=== PATIENT | female | born 1965 | race Caucasian/White ===

== ENCOUNTER 2017-01-31 16:19 | Inpatient (IN) | payer BC ==
[~2017-01-31] VITALS: Ht 157.5 cm; Wt 126.3 kg
[~2017-01-31 16:19] MED LIST: ALBUTEROL0.09 MG/A2 IH; AMLODIPINE BES10 MG PO; AMOXIL500 MG PO; ANAPROX DS550 MG PO; AVPAK AZITHROM250 M1 PO; BACTRIM DS 8001 TA1 PO; BREO ELLIPTA 11 EACH IH; CEFUROXIME AXE250 MG PO; CLARITIN10 MG PO; CLONIDINE HCL0.1 M1 PO; COMBIVENT1 ARO IH; DELTASONE20 M1 PO; DUONEB 3 MG/3 ML3 M1 INH; Duoneb 3ML 3 MG/3 ML INH; EES400 MG PO; HYDR12.5C PO; HYDROCODONE BIT1 T11 PO; KEFLEX500 MG PO; LISINOPRIL40 MG PO; MEDROL DOSEPAK4 MG PO; NEBULIZER DEVI; PHENERGAN25 M1 PO; PRAVASTATIN SOD20 MG PO; PREDNICOT10 MG PO; PREDNICOT20 MG PO; PREDNISONE10 MG PO; PREDNISONE20 M1 PO; PREDNISONE20 MG PO; PROAIR HFA0.09 MG/AC IH; PROVENTIL0.09 MG/AC IH; ROBITUSSIN AC 110 ML PO; ROBITUSSIN DM 105 ML PO; SINGULAIR10 M1 PO; SINGULAIR10 MG PO; SYMBICORT1 AE1 INH; TESSALON PERLE100 M1 PO; TUSSIN DM 10 M120 M1 PO; UNKOWN; VIBRAMYCIN100 MG PO; ZANTAC150 MG PO; ZITHROMAX Z PA250 MG PO; ZITHROMAX250 MG PO
[2017-01-31 18:57] VITALS: BP 154/63
[2017-01-31 19:12] LABS: BASO # 0.1 10*3/uL (0.0-0.1); BASO % 0.5 % (0.0-1.0); EOS # 0.2 10*3/uL (0.0-0.4); EOS % 2.1 % (1.0-4.0); HEMATOCRIT 38.9 % (37.0-47.0); HEMOGLOBIN 12.1 g/dl (12.0-16.0); IG # 0.1 10*3/uL (0.0-0.1); LYMPH # 1.1 10*3/uL (1.3-4.4); LYMPH % 12.1 % (27.0-41.0); MEAN CELL VOLUME 83.3 fl (81.0-99.0); MEAN CORPUSCULAR HGB 25.9 pg (27.0-31.0); MEAN CORPUSCULAR HGB CONC 31.1 g/dl (33.0-37.0); MEAN PLATELET VOLUME 11.6 fl (9.6-12.3); MONO # 0.2 10*3/uL (0.1-1.0); MONO % 2.6 % (3.0-9.0); NEUT # 7.7 10*3/uL (2.3-7.9); NEUT % 82.1 % (47.0-73.0); PLATELET COUNT AUTOMATED 243 10*3/uL (130-400); RED BLOOD COUNT 4.67 10*6/uL (4.10-5.10); RED CELL DISTRI WIDTH 15.4 % (0-14.5); WHITE BLOOD COUNT 9.4 10*3/uL (4.8-10.8)
[2017-01-31 19:27] LABS: ALBUMIN 3.5 gm/dl (3.1-4.5); ALKALINE PHOSPHATASE 100 U/L (45-117); BILIRUBIN, TOTAL 0.5 mg/dl (0.2-1.0); BUN 11 mg/dl (7-24); CARBON DIOXIDE 26 mmol/L (21-32); CHLORIDE 105 mmol/L (98-107); EST GLOM FILT AFRICAN AMERICAN > 60 ml/min; GLUCOSE 151 mg/dL (65-99); POTASSIUM 3.9 mmol/L (3.5-5.1); SGOT/AST 92 IU/L (3-35); SGPT/ALT 59 U/L (12-78); SODIUM 143 mmol/L (136-145); TOTAL PROTEIN 8.1 gm/dL (6.4-8.2)
[2017-01-31 20:15] VITALS: BP 158/100
[2017-01-31] MEDS ORDERED: BREO ELLIPTA 21 EACH IH (20:42)
[2017-01-31 21:08] VITALS: BP 158/100
[2017-02-01] VITALS: BP 160/102
[2017-02-01 00:43] LABS: CKMB < 0.5 ng/ml (0.5-3.6); CPK 76 U/L (26-192); TROPONIN I < 0.015 ng/ml (<0.045)
[2017-02-01 03:40] VITALS: BP 142/82
[2017-02-01 06:26] LABS: BASO % 0.2 % (0.0-1.0); HEMATOCRIT 37.3 % (37.0-47.0); HEMOGLOBIN 11.5 g/dl (12.0-16.0); IG # 0.1 10*3/uL (0.0-0.1); LYMPH # 1.1 10*3/uL (1.3-4.4); LYMPH % 10.7 % (27.0-41.0); MEAN CELL VOLUME 82.7 fl (81.0-99.0); MEAN CORPUSCULAR HGB 25.5 pg (27.0-31.0); MEAN CORPUSCULAR HGB CONC 30.8 g/dl (33.0-37.0); MEAN PLATELET VOLUME 12.1 fl (9.6-12.3); MONO # 0.1 10*3/uL (0.1-1.0); MONO % 1.1 % (3.0-9.0); NEUT # 9.1 10*3/uL (2.3-7.9); NEUT % 86.9 % (47.0-73.0); PLATELET COUNT AUTOMATED 246 10*3/uL (130-400); RED BLOOD COUNT 4.51 10*6/uL (4.10-5.10); RED CELL DISTRI WIDTH 15.3 % (0-14.5); WHITE BLOOD COUNT 10.4 10*3/uL (4.8-10.8)
[2017-02-01 06:39] LABS: CPK 62 U/L (26-192)
[2017-02-01 06:40] LABS: CKMB < 0.5 ng/ml (0.5-3.6); TROPONIN I < 0.015 ng/ml (<0.045)
[2017-02-01 07:02] LABS: HEMOGLOBIN A1c 6.8 % (4.8-5.6)
[2017-02-01 07:03] LABS: BUN 15 mg/dl (7-24); CARBON DIOXIDE 26 mmol/L (21-32); CHLORIDE 103 mmol/L (98-107); CHOLESTEROL 259 mg/dL (<200); EST GLOM FILT AFRICAN AMERICAN > 60 ml/min; GLUCOSE 195 mg/dL (65-99); HDL CHOLESTEROL 40 mg/dl (40-60); LDL CHOLESTEROL 195 mg/dL (9-159); PHOSPHOROUS 3.1 mg/dL (2.5-4.9); POTASSIUM 3.6 mmol/L (3.5-5.1); SODIUM 139 mmol/L (136-145); TRIGLYCERIDES 119 mg/dl (<150); VLDL CHOLESTEROL 24 mg/dL (6-40)
[2017-02-01 07:11] LABS: FREE T4 1.11 ng/dl (0.76-1.46)
[2017-02-01 08:13] VITALS: BP 150/82
[2017-02-01 12:18] VITALS: BP 143/88
[2017-02-01 13:02] LABS: CKMB < 0.5 ng/ml (0.5-3.6); CPK 81 U/L (26-192); TROPONIN I < 0.015 ng/ml (<0.045)
[2017-02-01 16:00] VITALS: BP 143/78
[2017-02-01 20:00] VITALS: BP 153/71
[2017-02-02] VITALS: BP 119/63
[2017-02-02 06:56] LABS: HEMATOCRIT 35.3 % (37.0-47.0); HEMOGLOBIN 10.9 g/dl (12.0-16.0); MEAN CELL VOLUME 84.2 fl (81.0-99.0); MEAN CORPUSCULAR HGB CONC 30.9 g/dl (33.0-37.0); MEAN PLATELET VOLUME 12.3 fl (9.6-12.3); PLATELET COUNT AUTOMATED 292 10*3/uL (130-400); RED BLOOD COUNT 4.19 10*6/uL (4.10-5.10); RED CELL DISTRI WIDTH 15.6 % (0-14.5); WHITE BLOOD COUNT 18.4 10*3/uL (4.8-10.8)
[2017-02-02 07:16] LABS: LYMPHOCYTE # 2.2 10*3/uL (1.3-4.4); MONOCYTE # 0.4 10*3/uL (0.1-1.0); NEUTROPHIL # 15.8 10*3/uL (2.3-7.9); NEUTROPHILS 86 % (47-73); TOTAL CELLS COUNTED 100 #CELLS
[2017-02-02 07:17] LABS: PLATELET SUFFICIENCY NORMAL (NORMAL)
[2017-02-02 07:20] LABS: BUN 21 mg/dl (7-24); CARBON DIOXIDE 26 mmol/L (21-32); CHLORIDE 105 mmol/L (98-107); EST GLOM FILT AFRICAN AMERICAN > 60 ml/min; GLUCOSE 205 mg/dL (65-99); POTASSIUM 4.1 mmol/L (3.5-5.1); SODIUM 142 mmol/L (136-145)
[2017-02-02 08:00] VITALS: BP 137/85
[2017-02-02 12:00] VITALS: BP 138/70
[2017-02-02 16:00] VITALS: BP 127/69
[2017-02-02 20:00] VITALS: BP 133/67
[2017-02-03] VITALS: BP 156/65
[2017-02-03 06:05] LABS: HEMATOCRIT 37.4 % (37.0-47.0); HEMOGLOBIN 11.3 g/dl (12.0-16.0); MEAN CELL VOLUME 84.8 fl (81.0-99.0); MEAN CORPUSCULAR HGB 25.6 pg (27.0-31.0); MEAN CORPUSCULAR HGB CONC 30.2 g/dl (33.0-37.0); MEAN PLATELET VOLUME 12.9 fl (9.6-12.3); PLATELET COUNT AUTOMATED 258 10*3/uL (130-400); RED BLOOD COUNT 4.41 10*6/uL (4.10-5.10); RED CELL DISTRI WIDTH 15.8 % (0-14.5); WHITE BLOOD COUNT 15.3 10*3/uL (4.8-10.8)
[2017-02-03 06:28] LABS: BUN 27 mg/dl (7-24); CARBON DIOXIDE 27 mmol/L (21-32); CHLORIDE 104 mmol/L (98-107); EST GLOM FILT AFRICAN AMERICAN > 60 ml/min; GLUCOSE 258 mg/dL (65-99); POTASSIUM 4.1 mmol/L (3.5-5.1); SODIUM 140 mmol/L (136-145)
[2017-02-03 06:40] LABS: LYMPHOCYTE # 1.4 10*3/uL (1.3-4.4); METAMYELOCYTES 1 % (0-0); MONOCYTE # 0.5 10*3/uL (0.1-1.0); MYELOCYTES 1 % (0-0); NEUTROPHIL # 13.2 10*3/uL (2.3-7.9); NEUTROPHILS 86 % (47-73); TOTAL CELLS COUNTED 100 #CELLS
[2017-02-03 06:41] LABS: PLATELET SUFFICIENCY NORMAL (NORMAL)
[2017-02-03 08:00] VITALS: BP 150/83
[2017-02-03 12:00] VITALS: BP 114/56
[2017-02-03 16:00] VITALS: BP 129/66
[2017-02-03 20:00] VITALS: BP 128/74
[2017-02-04] VITALS: BP 145/78
[2017-02-04 06:28] LABS: BASO % 0.1 % (0.0-1.0); HEMATOCRIT 36.9 % (37.0-47.0); HEMOGLOBIN 11.5 g/dl (12.0-16.0); IG # 0.2 10*3/uL (0.0-0.1); LYMPH # 3.2 10*3/uL (1.3-4.4); LYMPH % 21.1 % (27.0-41.0); MEAN CELL VOLUME 83.5 fl (81.0-99.0); MEAN CORPUSCULAR HGB CONC 31.2 g/dl (33.0-37.0); MEAN PLATELET VOLUME 12.1 fl (9.6-12.3); MONO % 6.7 % (3.0-9.0); NEUT # 10.6 10*3/uL (2.3-7.9); NEUT % 70.6 % (47.0-73.0); PLATELET COUNT AUTOMATED 262 10*3/uL (130-400); RED BLOOD COUNT 4.42 10*6/uL (4.10-5.10); RED CELL DISTRI WIDTH 15.8 % (0-14.5)
[2017-02-04 07:05] LABS: BUN 25 mg/dl (7-24); CARBON DIOXIDE 29 mmol/L (21-32); CHLORIDE 103 mmol/L (98-107); EST GLOM FILT AFRICAN AMERICAN > 60 ml/min; GLUCOSE 158 mg/dL (65-99); POTASSIUM 3.9 mmol/L (3.5-5.1); SODIUM 140 mmol/L (136-145)
[2017-02-04 08:00] VITALS: BP 120/68
[2017-02-04 12:00] VITALS: BP 160/90
[2017-02-04] MEDS ORDERED: GLUCOPHAGE500 MG PO (12:58)
[2017-02-04] MEDS ORDERED: PREDNISONE50 MG PO (12:58)
[2017-02-04] MEDS ORDERED: BREO ELLIPTA 21 EACH IH (12:58)
== END 2017-02-04 13:32 | disposition home or self-care (01) | DRG 202 ==
LOC: ED 16:19 → EDHOLD 18:25 → 5E 20:07
PROVIDERS: Hospitalist; Physician Assistant; Student in an Organized Health Care Education/Training Program
DX: J45.901 Unspecified asthma with (acute) exacerbation (principal); Z68.42 Body mass index [BMI] 45.0-49.9, adult; E11.65 Type 2 diabetes mellitus with hyperglycemia; I10 Essential (primary) hypertension; H66.91 Otitis media, unspecified, right ear; E66.01 Morbid (severe) obesity due to excess calories; Z82.5 Family history of asthma and other chronic lower respiratory diseases; Z79.899 Other long term (current) drug therapy

== ENCOUNTER → 2017-02-10 | Outpatient (CLI) | payer BC ==
[~2017-02-10] MED LIST changes: +BREO ELLIPTA 21 EACH IH; +GLUCOPHAGE500 MG PO; +PREDNISONE50 MG PO
== END | disposition home or self-care (01) ==
LOC: RESCLI 01:58
DX: E11.9 Type 2 diabetes mellitus without complications (principal); I10 Essential (primary) hypertension; J45.909 Unspecified asthma, uncomplicated; E66.9 Obesity, unspecified; E78.5 Hyperlipidemia, unspecified

== ENCOUNTER 2017-05-01 17:00 | Emergency (ER) | payer BC ==
[~2017-05-01] VITALS: Ht 157.4 cm; Wt 113.4 kg
[2017-05-01] MEDS ORDERED: CLINDAMYCIN HC300 MG PO (17:35)
== END 2017-05-01 17:36 | disposition home or self-care (01) ==
LOC: ED 17:00
DX: L03.311 Cellulitis of abdominal wall (principal); Z79.899 Other long term (current) drug therapy

== ENCOUNTER → 2017-05-13 | Outpatient (CLI) | payer BC ==
[~2017-05-13] MED LIST changes: +CLINDAMYCIN HC300 MG PO
== END | disposition home or self-care (01) ==
LOC: RESCLI 02:17
DX: I10 Essential (primary) hypertension (principal); E66.9 Obesity, unspecified; J45.909 Unspecified asthma, uncomplicated; E78.5 Hyperlipidemia, unspecified; E11.9 Type 2 diabetes mellitus without complications; E78.00 Pure hypercholesterolemia, unspecified; K65.1 Peritoneal abscess; Z91.09 Other allergy status, other than to drugs and biological substances

== ENCOUNTER → 2017-06-18 | Outpatient (CLI) | payer BC ==
[2017-06-18 10:58] LABS: ALBUMIN 3.3 gm/dl (3.1-4.5); ALKALINE PHOSPHATASE 94 U/L (45-117); BUN 10 mg/dl (7-24); CHLORIDE 102 mmol/L (98-107); CREATININE 0.64 mg/dL (0.55-1.02); POTASSIUM 3.8 mmol/L (3.5-5.1); SGOT/AST 95 IU/L (3-35); SGPT/ALT 53 U/L (12-78); SODIUM 139 mmol/L (136-145); TOTAL PROTEIN 7.8 gm/dL (6.4-8.2)
== END | disposition home or self-care (01) ==
LOC: LAB 09:52
PROVIDERS: Internal Medicine
DX: E11.9 Type 2 diabetes mellitus without complications (principal)

== ENCOUNTER 2017-09-04 07:23 | Emergency (ER) | payer BC ==
[~2017-09-04] VITALS: Wt 145.1 kg
--- NOTE | ~2017-09-04 | PROC NOTE ---
[place], [place] PROCEDURE NOTE NAME: EULA TURK UNIT #: [id number] ROOM: DOCTOR: RESHMA NARAYANAN MD BIRTHDATE: [birth year] DOS: 09/04/2017 Our anesthesia department was contacted by the Emergency Department regarding assistance with a spinal tap for a patient in the Emergency Department. DESCRIPTION OF PROCEDURE: The patient was admitted earlier with a significant change in medical status including confusion and combativeness. Emergency Department physician was requesting assistance with the spinal tap given the patient's size and issues of lack of cooperation. Procedure was performed with anesthesia, also providing sedation. Sedation for the procedure was performed by JULIAN under the guidance of myself, Dr. Narayanan. Spinal tap was initially attempted by Ambrosio Paulino CRNA, but given the patient's body habitus, he was unable to gain access for collection of spinal fluid. The remainder of the procedure was performed by Dr. Narayanan. Spinal tap was performed using sterile technique. Standard spinal tap kit was used and provided by the Emergency Department. Back was cleaned with Betadine x 3. Needle was advanced at the level of L3-L4. After several attempts, access was gained and a spinal fluid collected into 4 vials. Access was not ideal and blood flow was slow and collection did take a significant amount of time. Procedure was performed with minimal difficulty and there did not appear to be any complications. Samples were turned over to the Emergency Department physician for forwarding to the lab for testing. The patient tolerated the procedure well. Report given to Emergency Department physician and nurses, Anesthesia Department then signed off. RESHMA NARAYANAN MD CM:PROCNOTE:PROCEDURE NOTE [id number] RESHMA NARAYANAN MD
[2017-09-04 08:13] LABS: BASO % 0.2 % (0.0-1.0); EOS # 0.1 10*3/uL (0.0-0.4); EOS % 0.5 % (1.0-4.0); HEMATOCRIT 41.6 % (37.0-47.0); HEMOGLOBIN 13.2 g/dl (12.0-16.0); LYMPH # 1.3 10*3/uL (1.3-4.4); MEAN CELL VOLUME 87.2 fl (81.0-99.0); MEAN CORPUSCULAR HGB 27.7 pg (27.0-31.0); MEAN CORPUSCULAR HGB CONC 31.7 g/dl (33.0-37.0); MEAN PLATELET VOLUME 12.1 fl (9.6-12.3); MONO # 0.3 10*3/uL (0.1-1.0); MONO % 1.8 % (3.0-9.0); NEUT # 13.9 10*3/uL (2.3-7.9); NEUT % 89.1 % (47.0-73.0); PLATELET COUNT AUTOMATED 180 10*3/uL (130-400); RED BLOOD COUNT 4.77 10*6/uL (4.10-5.10); RED CELL DISTRI WIDTH 13.7 % (0-14.5); WHITE BLOOD COUNT 15.6 10*3/uL (4.8-10.8)
[2017-09-04 08:32] LABS: ALBUMIN 3.5 gm/dl (3.1-4.5); ALKALINE PHOSPHATASE 128 U/L (45-117); BUN 15 mg/dl (7-24); CHLORIDE 104 mmol/L (98-107); CREATININE 0.93 mg/dL (0.55-1.02); POTASSIUM 3.6 mmol/L (3.5-5.1); SGOT/AST 95 IU/L (3-35); SGPT/ALT 75 U/L (12-78); SODIUM 138 mmol/L (136-145); TOTAL PROTEIN 8.2 gm/dL (6.4-8.2)
[2017-09-04 08:53] LABS: URINE AMPHETAMINES < 1000 (1000ng/ml); URINE BARBITURATES < 200 (200ng/ml); URINE BENZODIAZEPINES < 200 (200ng/ml); URINE CANNABINOIDS (THC) < 50 (50ng/ml); URINE COCAINE < 300 (300ng/ml); URINE METHADONE < 300 (300ng/ml); URINE OPIATES < 300 (300ng/ml)
[2017-09-04 08:55] LABS: URINE PHENCYCLIDINE < 25 (25ng/ml)
[2017-09-04 09:11] LABS: BILIRUBIN NEGATIVE (NEGATIVE); BLOOD NEGATIVE (NEGATIVE); CLARITY CLEAR (CLEAR); COLOR YELLOW (YELLOW); GLUCOSE NEGATIVE (NEGATIVE); KETONE 1+ (NEGATIVE); LEUKO ESTERASE NEGATIVE (NEGATIVE); NITRITE NEGATIVE (NEGATIVE); PH 5.5 (5.0-9.0); UROBILINOGEN 0.2 E.U./dl (0.2-1.0)
[2017-09-04 09:37] LABS: BACTERIA TRACE
[2017-09-04 11:17] LABS: CSF RBC 4000 /uL
[2017-09-04 11:23] LABS: CSF GLUCOSE 72 mg/dL (40-70)
[2017-09-04 11:37] LABS: CSF TOTAL PROTEIN 574.7 mg/dL (15-45)
[2017-09-04 12:18] LABS: CSF MONOCYTES 2 % (15-45)
[2017-09-04 12:21] LABS: CLARITY HAZY; COLOR BLOODY
[2017-09-04 12:59] LABS: CSF WBC 13120 /uL
[2017-09-07 00:05] LABS: HSV-2 DNA Negative (Negative)
[2017-09-09 15:07] LABS: CSF CRYPTOCOCCUS AG Negative (Negative)
== END 2017-09-04 11:26 | disposition short-term general hospital (02) ==
LOC: ED 07:23
PROVIDERS: Emergency Medicine
DX: A41.9 Sepsis, unspecified organism (principal); G93.41 Metabolic encephalopathy; R41.82 Altered mental status, unspecified; I10 Essential (primary) hypertension; J45.909 Unspecified asthma, uncomplicated; E11.65 Type 2 diabetes mellitus with hyperglycemia; Z68.42 Body mass index [BMI] 45.0-49.9, adult; Z90.89 Acquired absence of other organs; Z79.899 Other long term (current) drug therapy

== ENCOUNTER → 2017-09-30 | Outpatient (CLI) | payer BC | END | disposition home or self-care (01) | LOC: RESCLI 01:04 | DX: I10 Essential (primary) hypertension (principal); E66.9 Obesity, unspecified; J45.909 Unspecified asthma, uncomplicated; E78.5 Hyperlipidemia, unspecified; E11.9 Type 2 diabetes mellitus without complications; R53.1 Weakness; E78.00 Pure hypercholesterolemia, unspecified; Z91.048 Other nonmedicinal substance allergy status ==

== ENCOUNTER → 2017-10-21 | Outpatient (CLI) | payer BC ==
[2017-10-21 09:40] LABS: BASO # 0.1 10*3/uL (0.0-0.1); BASO % 0.7 % (0.0-1.0); EOS # 0.3 10*3/uL (0.0-0.4); EOS % 3.5 % (1.0-4.0); HEMATOCRIT 38.2 % (37.0-47.0); HEMOGLOBIN 11.6 g/dl (12.0-16.0); LYMPH # 2.3 10*3/uL (1.3-4.4); LYMPH % 25.9 % (27.0-41.0); MEAN CELL VOLUME 86.4 fl (81.0-99.0); MEAN CORPUSCULAR HGB 26.2 pg (27.0-31.0); MEAN CORPUSCULAR HGB CONC 30.4 g/dl (33.0-37.0); MEAN PLATELET VOLUME 12.5 fl (9.6-12.3); MONO # 0.6 10*3/uL (0.1-1.0); MONO % 6.9 % (3.0-9.0); NEUT # 5.6 10*3/uL (2.3-7.9); NEUT % 62.7 % (47.0-73.0); PLATELET COUNT AUTOMATED 240 10*3/uL (130-400); RED BLOOD COUNT 4.42 10*6/uL (4.10-5.10); RED CELL DISTRI WIDTH 14.3 % (0-14.5)
[2017-10-21 10:05] LABS: ALBUMIN 3.4 gm/dl (3.1-4.5); ALKALINE PHOSPHATASE 73 U/L (45-117); BUN 11 mg/dl (7-24); CHLORIDE 106 mmol/L (98-107); CHOLESTEROL 183 mg/dL (<200); CREATININE 0.63 mg/dL (0.55-1.02); HDL CHOLESTEROL 36 mg/dl (40-60); LDL CHOLESTEROL 107 mg/dL (9-159); POTASSIUM 3.5 mmol/L (3.5-5.1); SGOT/AST 52 IU/L (3-35); SGPT/ALT 41 U/L (12-78); SODIUM 140 mmol/L (136-145); TOTAL PROTEIN 7.5 gm/dL (6.4-8.2); TRIGLYCERIDES 199 mg/dl (<150); VLDL CHOLESTEROL 40 mg/dL (6-40)
== END | disposition home or self-care (01) ==
LOC: RESCLI 03:33 → LAB 03:33 → RESCLI 13:09
PROVIDERS: Internal Medicine
DX: E11.9 Type 2 diabetes mellitus without complications (principal)

== ENCOUNTER → 2017-11-04 | Outpatient (CLI) | payer BC | END | disposition home or self-care (01) | LOC: RESCLI 01:32 | DX: J06.9 Acute upper respiratory infection, unspecified (principal); I10 Essential (primary) hypertension; J45.909 Unspecified asthma, uncomplicated; E78.5 Hyperlipidemia, unspecified; E11.9 Type 2 diabetes mellitus without complications; E66.01 Morbid (severe) obesity due to excess calories; H53.9 Unspecified visual disturbance; G00.9 Bacterial meningitis, unspecified; R56.9 Unspecified convulsions; Z91.048 Other nonmedicinal substance allergy status ==

== ENCOUNTER 2017-11-12 14:23 | Inpatient (IN) | payer BC, MEDICAID ==
[~2017-11-12] VITALS: Ht 157.4 cm; Wt 117.3 kg
--- NOTE | ~2017-11-12 | CON ---
[place], [place] REPORT OF CONSULTATION NAME: [id number] UNIT #: [id number] ROOM: 415 DOCTOR: PAMELA ZAYAS DO BIRTHDATE: [birth year] DOS: 11/13/2017 CHIEF COMPLAINT: Cough and congestion. HISTORY OF PRESENT ILLNESS: This is a 52-year-old female who came to the ER from home with a complaint of shortness of breath that has been ongoing for about a week. The patient was on a Z-KERI as outpatient with no improvement of her symptoms. The patient reports that she is having fever, cough without sputum production, wheezing and shortness of breath. Fever upon arrival to the ER was 102. The patient was recently discharged in August for metabolic encephalopathy and meningitis. PAST MEDICAL HISTORY: Asthma, cellulitis, diabetes type 2, transaminitis, hypertension, morbid obesity. PAST SURGICAL HISTORY: Tonsillectomy. SOCIAL HISTORY: The patient denies alcohol use. No illicit drug use and tobacco abuse. FAMILY HISTORY: Father of asthma attack in his 70s. Mother of car crash. ALLERGIES: No known drug allergies. HOME MEDICATIONS: Include DuoNeb, nebulizers, Breo, Keppra, lisinopril, metformin, Singulair, pravastatin. REVIEW OF SYSTEMS: GENERAL: The patient reports fevers, chills. Denies weight loss, weight gain. HEENT: Denies change in vision, hearing loss, nasal discharge, sore throat, dysphagia. CARDIOVASCULAR: Denies chest pain, palpitations, lower extremity edema. RESPIRATORY: Reports shortness of breath, cough, wheezing, dyspnea on exertion and sputum production. The patient denies hemoptysis. ABDOMEN: Denies abdominal pain, nausea, vomiting, diarrhea, constipation. NEUROLOGIC: The patient denies lightheadedness, dizziness, headaches, confusion. SKIN: The patient denies rashes or lesions. PHYSICAL EXAMINATION: VITAL SIGNS: Temperature 98.2, pulse is 86, respirations 20, blood pressure 114/64, pulse ox is 97% on room air. GENERAL APPEARANCE: The patient is awake, alert and oriented x 3, in mild distress. HEENT: Eyes are clear. Nares are patent. Mucous membranes are moist. NECK: Supple, nontender. CARDIOVASCULAR: Regular rate and rhythm. S1, S2 noted. PULMONARY: Expiratory wheezing in all lung sarmiento. No rales. No rhonchi. ABDOMEN: Soft, nontender with positive bowel sounds. [place], [place] REPORT OF CONSULTATION NAME: EULA TURK UNIT #: [id number] ROOM: [facility] DOCTOR: PAMELA ZAYAS DO BIRTHDATE: [birth year] EXTREMITIES: Periphery is clear of edema and erythema. NEUROLOGIC: Negative for focal deficits. LABORATORY DATA: Blood cultures and flu swabs are negative. Chest x-ray yesterday showed normal PA and lateral chest. IMPRESSION: 1. Pneumonitis. 2. Suspected flu. 3. Fever. 4. Diabetes. 5. Obesity. 6. History of meningitis. TREATMENT PLAN: The patient was initially started on Levaquin, continue with Levaquin IV, Solu-Medrol 80 b.i.d., Robitussin, Mucinex. We will add Tamiflu to the treatment plan, continue with DuoNeb and Dulera. The patient reports that she feels mildly improved today compared to yesterday. We will continue to follow. PAMELA ZAYAS, JAMISON ANDINO MD CM:CONSTR:REPORT OF CONSULTATION 1150 11/13/17 1436 interface
--- NOTE | ~2017-11-12 | PR ---
[place], [place] PROGRESS NOTE NAME: EULA TURK UNIT #: [id number] ROOM: 421 DOCTOR: SINA TERRY MD,JAMISON BIRTHDATE: [birth year] DOS: 11/14/2017 PULMONARY PROGRESS ADDENDUM NOTE SUBJECTIVE: She has been comfortably resting at this time on the bed. Denies symptoms of chest pain, shortness of breath, cough, and wheezing has been noted decreased. Denies symptoms of hemoptysis or any chest pain. The patient was seen independently today [id number] encounter. History was confirmed. Physical examination performed. Labs were reviewed. Assessment and management for this note were personally completed. Note done by the medical laboratory technicians was approved as well. PHYSICAL EXAMINATION: VITAL SIGNS: Reviewed were noted essentially normal vital signs. The pulse oxygen saturation for the patient noted as normal on room air at 93%. LUNGS: Noted with mild expiratory wheezing with significant reduction and improvement in air entry from yesterday's examination. ABDOMEN: Noted chronic obesity. EXTREMITIES: Without any edema, clubbing or cyanosis. LABORATORY DATA: Reviewed for the patient. Blood culture was noted as no bacterial growth. Final culture results were noted from the 24 of this month. IMPRESSION: Resolving acute exacerbation of bronchial asthma, resolution of fever is also noted progressively. PLAN OF MANAGEMENT: The patient will be continued on bronchodilators, dose of steroids will be decreased, Solu-Medrol 40 mg b.i.d. Potential discharge home on oral medications tomorrow would be considered based on the further improvement in the respiratory symptoms and status. JAMISON ANDINO MD CM:PNTRANS [phone] JAMISON TERRY MD 11/15/17 0126 interface
--- NOTE | ~2017-11-12 | PR ---
[place], [place] PROGRESS NOTE NAME: EULA TURK UNIT #: [id number] ROOM: 421 DOCTOR: PAMELA ZAYAS DO BIRTHDATE: [birth year] DOS: 11/14/2017 SUBJECTIVE: The patient is seen and examined at bedside. The patient was sleeping, in no acute distress. The patient awoke easily, is awake and alert and oriented. The patient reports that her breathing has eased up and that she is not having any difficulty catching her breath. The patient reports that she still has a cough and mild shortness of breath; however, has dramatically improved from yesterday. The patient has no new complaints at this time. OBJECTIVE: VITAL SIGNS: Temperature 98.1, pulse was 98, respirations 20, blood pressure 144/79, pulse ox 98% on room air. GENERAL APPEARANCE: The patient is awake and alert and oriented times 3, no acute distress. HEENT: Eyes are clear. No injection. Nares are patent. Mucous membranes are moist. NECK: Supple, nontender. CARDIOVASCULAR: Regular rate and rhythm, no murmurs, gallops or rubs. PULMONARY: Wheezes with diminished breath sounds. No rhonchi or rales. ABDOMEN: Soft, nontender with positive bowel sounds. EXTREMITIES: No edema, erythema, clubbing, or cyanosis. NEUROLOGIC: Negative for focal deficits. LABORATORY DATA: Blood cultures remain negative. Flu swab was negative. IMPRESSION: 1. Pneumonitis. 2. Acute upper respiratory infection with bronchitis. 3. Chronic obesity. 4. Recent history of meningitis and type 2 diabetes, uncontrolled. PLAN: At this time, I will continue with the steroids; however, the dose will be reduced from 80 to 40 b.i.d. Continue with antibiotics of Levaquin and antivirals with the Tamiflu. Bronchodilators as needed. The patient continues to get better clinically, will likely be ready for discharge tomorrow. PAMELA ZAYAS DO [place], [place] PROGRESS NOTE NAME: EULA TURK UNIT #: [id number] ROOM: 421 DOCTOR: PAMELA ZAYAS DO BIRTHDATE: [birth year] JAMISON ANDINO MD CM:FAUZIA [id number] 20 PAMELA ZAYAS DO 11/14/171220 interface
--- NOTE | ~2017-11-12 | PR ---
[place], [place] PROGRESS NOTE [id number] UNIT #: [id number] ROOM: 421 DOCTOR: SINA TERRY MD,JAMISON BIRTHDATE: [birth year] DOS: 11/15/2017 SUBJECTIVE: She was noted comfortable at this time without any acute distress. The patient was reported symptoms of having gradual reduction in symptoms of shortness of breath, coughing, or wheezing at this time. Denies symptoms of abdominal pain. OBJECTIVE: VITAL SIGNS: For the patient, which was recorded. The patient showed the temperature noted normal, respiratory rate 18, heart rate of 71, the blood pressure 146/76. The pulse oxygen saturation recorded as 99% on room air. HEENT: Chronic obesity. NECK: Supple. Head was atraumatic. CARDIOVASCULAR: S1, S2 audible. LUNGS: Minimal wheezing with improved air entry of the lungs were noted bilaterally. ABDOMEN: Soft, obese, nontender. IMPRESSION: 1. The patient who has been noted with progressive resolution of acute exacerbation of bronchial asthma. The patient with acute bronchitis. 2. History of chronic obesity. PLAN OF TREATMENT: The patient could be considered for home discharge at this time. No other changes in treatment at this time will be necessary. Supportive care, other therapy, plan of management. Usual care. Home medication the patient for bronchial asthma long-term basis to be continued were advised. JAMISON ANDINO MD CM:PNTRANS [phone] JAMISON TERRY MD 11/16/17 0102 interface
--- NOTE | ~2017-11-12 | CON ---
[place], [place] REPORT OF CONSULTATION NAME: [facility]K [facility] [id number] UNIT #: [id number] ROOM: 415 DOCTOR: SINA TERRY MDJAMISON BIRTHDATE: [birth year] DOS: 11/13/2017 REASON FOR CONSULTATION: Assess the patient's current ongoing exacerbation of bronchial asthma and other abnormal respiratory symptom. HISTORY OF PRESENT ILLNESS: The patient was independently seen with [id number] encounter today. History was personally confirmed with the patient. Physical examination performed. All the labs were reviewed. The assessment and management today's note were personally completed. The note done by the medical coder was approved as well. HISTORY OF PRESENT ILLNESS: A 60-year-old white female known with history of bronchial asthma since childhood. The patient presented to the hospital. The patient has reported increased respiratory symptoms progressively. The patient stated the symptoms have been present since 08/2008 for this patient as she developed acute meningitis and metabolic encephalopathy, treated at [facility]. The patient states she has been noted complete resolution of the previous symptoms. The current symptom has been noted with gradual worsening with the patient's inability exact of sputum, treated with a Z-KERI by the primary care physician without any improvement in symptom. She has been noted progressive chest congestion with nonproductive cough ____ time with increased shortness of breath with exertion, [id number] activities as well as wheezing. She was complaining of tightness in the chest without any chest pain. She was also noted with fever as the patient arrived in the Emergency Room. REVIEW OF SYSTEMS: Done by the medical coder, was approved. PAST MEDICAL HISTORY: 1. Known with history of longstanding bronchial asthma, severity of the patient's was unknown. 2. Past history of cellulitis. 3. Type 2 diabetes mellitus. 4. Essential hypertension. 5. Morbid obesity. PAST SURGICAL HISTORY: Noted as tonsillectomy. SOCIAL HISTORY: The patient stated she is , has one child. Nonsmoker lifetime. Denies history of alcohol use, illicit drug use or occupation related pulmonary exposure. FAMILY HISTORY: The patient's father of complication related to bronchial asthma. Mother in a motor vehicle accident. HOME MEDICATIONS: Reported use of p.o. Lipitor, Keppra, lisinopril, DuoNeb, pravastatin, Singulair and metformin. DRUG ALLERGIES: The patient was noted as no known drug allergies. PHYSICAL EXAMINATION: [place], [place] REPORT OF CONSULTATION NAME: EULA TURK UNIT #: [id number] ROOM: [facility] DOCTOR: SINA TERRY MD,JAMISON BIRTHDATE: [birth year] GENERAL: A 52-year-old female has been noted currently awake and alert without acute distress. Height of 5 feet 2 inches, weight of 215 pounds, BMI 47.3. VITAL SIGNS: For the patient which were recorded shows temperature was noted 103.2 degree Fahrenheit. Later the patient noted to gradual afebrile in the last 12 hours, respiratory rate range between 18-20, heart rate of 121 on admission and later 86, blood pressure 190/132 on admission and later 114/64, pulse oxygen saturation of the patient noted room air 97% saturation. HEENT: Chronic obesity. Head was atraumatic. Eye nonicterus. Decreased posterior pharyngeal space. CARDIOVASCULAR SYSTEM: S1, S2 audible. LUNGS: The patient was noted without any wheezing or crackles at present time. The breaths are noted [id number] diminished bilaterally with moderate diffuse expiratory wheezing. There were no crackles heard. ABDOMEN: Soft and obese. EXTREMITIES: The patient was noted with chronic obesity without any edema, clubbing or cyanosis. CENTRAL NERVOUS SYSTEM: Cranial nerves 2-12 intact. MUSCULOSKELETAL: No deformities. SKIN: Without any rashes or lesions. LABORATORY DATA: The CBC on admission yesterday for the patient's hemoglobin 11.2, remaining CBC was normal. The lactic acid 2.3 on admission. Followup was 1.6. CMP of the patient on admission 11/12/2017, BUN and creatinine normal, potassium 3.6, remaining LFTs normal. Influenza A and B, nasal washing antigen negative. The CBC of patient 11/13/2017, hemoglobin 10.6 and hematocrit 34.6, platelet count normal, WBC count normal. The troponin of patient on the . All 3 sets were noted as negative. The chest x-ray 2, which was reviewed from PACS images mild hyperinflation without any acute pulmonary infiltration. IMPRESSION: 1. The patient will be currently admitted to the hospital with progressive respiratory symptoms with acute exacerbation of bronchial asthma and acute bronchitis. 2. Chronic obesity as well. 3. Past history of meningitis and acute type 2 diabetes mellitus of the patient was also noted with the partially uncontrolled glucose ____ corticosteroids. PLAN OF TREATMENT: The patient has been currently on bronchodilators every 4 hours as the DuoNeb will be continued, Solu-Medrol 80 mg b.i.d. was ordered that would continue at least for the next 24 hours and reduction dose will be done based on improvement in symptoms in the wheezing and other improvement. Continue to manage the uncontrolled hyperglycemia. Continue current antibiotic. No changes. Continue empirical use of the influenza A infection, which has been still noted community-acquired common and possibility of influenza infection cannot be excluded. Other supportive therapy, plan of management and care plan and additional treatment changes will be recommended based on progression of the illness. Pulmonary consultation, evaluation and management. Thank you for allowing me to participate in the care of this patient. [place], [place] REPORT OF CONSULTATION NAME: EULA TURK UNIT #: [id number] ROOM: 415 DOCTOR: JAMISON BRYANT MD BIRTHDATE: [birth year] JAMISON ANDINO MD CM:CONSTR:REPORT OF CONSULTATION 1723 11/14/17 0621 interface
[2017-11-12 14:31] VITALS: BP 190/132
[2017-11-12 15:09] LABS: BASO % 0.3 % (0.0-1.0); EOS # 0.1 10*3/uL (0.0-0.4); EOS % 1.8 % (1.0-4.0); HEMATOCRIT 36.3 % (37.0-47.0); HEMOGLOBIN 11.2 g/dl (12.0-16.0); LYMPH # 0.5 10*3/uL (1.3-4.4); LYMPH % 6.6 % (27.0-41.0); MEAN CELL VOLUME 85.2 fl (81.0-99.0); MEAN CORPUSCULAR HGB 26.3 pg (27.0-31.0); MEAN CORPUSCULAR HGB CONC 30.9 g/dl (33.0-37.0); MEAN PLATELET VOLUME 12.8 fl (9.6-12.3); MONO # 0.3 10*3/uL (0.1-1.0); MONO % 4.2 % (3.0-9.0); NEUT # 6.2 10*3/uL (2.3-7.9); PLATELET COUNT AUTOMATED 163 10*3/uL (130-400); RED BLOOD COUNT 4.26 10*6/uL (4.10-5.10); RED CELL DISTRI WIDTH 14.7 % (0-14.5); WHITE BLOOD COUNT 7.1 10*3/uL (4.8-10.8)
[2017-11-12] MEDS ORDERED: KEPPRA1000 MG PO (15:10)
[2017-11-12] MEDS ORDERED: METFORMIN500 MG PO (15:11)
[2017-11-12 15:27] LABS: ALBUMIN 3.7 gm/dl (3.1-4.5); ALKALINE PHOSPHATASE 77 U/L (45-117); BUN 8 mg/dl (7-24); CHLORIDE 106 mmol/L (98-107); CREATININE 0.65 mg/dL (0.55-1.02); LIPASE 269 U/L (73-393); POTASSIUM 3.4 mmol/L (3.5-5.1); SGOT/AST 46 IU/L (3-35); SGPT/ALT 42 U/L (12-78); SODIUM 141 mmol/L (136-145); TOTAL PROTEIN 7.4 gm/dL (6.4-8.2)
[2017-11-12 15:29] LABS: TROPONIN I < 0.015 ng/ml (<0.045)
[2017-11-12 15:36] LABS: BILIRUBIN NEGATIVE (NEGATIVE); BLOOD NEGATIVE (NEGATIVE); CLARITY CLEAR (CLEAR); COLOR YELLOW (YELLOW); GLUCOSE NEGATIVE (NEGATIVE); KETONE NEGATIVE (NEGATIVE); LEUKO ESTERASE NEGATIVE (NEGATIVE); NITRITE NEGATIVE (NEGATIVE); PH 5.5 (5.0-9.0); SPECIFIC GRAVITY 1.015 (1.005-1.030); UROBILINOGEN 0.2 E.U./dl (0.2-1.0)
[2017-11-12 15:52] LABS: BACTERIA 1+; EPITHELIAL CELLS TNTC; MUCOUS 1+; WBC 0-2 wbc/hpf (0-5)
[2017-11-12 16:01] VITALS: BP 157/61
[2017-11-12 17:23] VITALS: BP 142/80
[2017-11-12 17:47] VITALS: BP 146/77
[2017-11-12 17:53] VITALS: BP 146/77
[2017-11-12 20:00] VITALS: BP 137/54
[2017-11-13] VITALS: BP 129/64
[2017-11-13 06:40] LABS: BASO % 0.4 % (0.0-1.0); HEMATOCRIT 34.6 % (37.0-47.0); HEMOGLOBIN 10.6 g/dl (12.0-16.0); LYMPH # 0.4 10*3/uL (1.3-4.4); LYMPH % 7.5 % (27.0-41.0); MEAN CELL VOLUME 85.2 fl (81.0-99.0); MEAN CORPUSCULAR HGB 26.1 pg (27.0-31.0); MEAN CORPUSCULAR HGB CONC 30.6 g/dl (33.0-37.0); MEAN PLATELET VOLUME 12.4 fl (9.6-12.3); MONO # 0.3 10*3/uL (0.1-1.0); MONO % 4.4 % (3.0-9.0); NEUT # 4.9 10*3/uL (2.3-7.9); NEUT % 86.8 % (47.0-73.0); PLATELET COUNT AUTOMATED 168 10*3/uL (130-400); RED BLOOD COUNT 4.06 10*6/uL (4.10-5.10); RED CELL DISTRI WIDTH 14.6 % (0-14.5); WHITE BLOOD COUNT 5.6 10*3/uL (4.8-10.8)
[2017-11-13 07:14] LABS: ALBUMIN 3.1 gm/dl (3.1-4.5); BUN 9 mg/dl (7-24); CHLORIDE 111 mmol/L (98-107); CHOLESTEROL 170 mg/dL (<200); CREATININE 0.57 mg/dL (0.55-1.02); HDL CHOLESTEROL 45 mg/dl (40-60); LDL CHOLESTEROL 108 mg/dL (9-159); PHOSPHOROUS 3.3 mg/dL (2.5-4.9); POTASSIUM 3.6 mmol/L (3.5-5.1); SGOT/AST 39 IU/L (3-35); SGPT/ALT 39 U/L (12-78); SODIUM 144 mmol/L (136-145); TRIGLYCERIDES 87 mg/dl (<150); VLDL CHOLESTEROL 17 mg/dL (6-40)
[2017-11-13 07:31] LABS: ALKALINE PHOSPHATASE 67 U/L (45-117)
[2017-11-13 08:00] VITALS: BP 114/64
[2017-11-13 08:52] LABS: VITAMIN D, 25-HYDROXY 22.3 ng/mL (30-100)
[2017-11-13 12:00] VITALS: BP 129/66
[2017-11-13 16:00] VITALS: BP 130/75
[2017-11-13 20:00] VITALS: BP 135/79
[2017-11-14] VITALS: BP 130/87
[2017-11-14 08:00] VITALS: BP 144/79
[2017-11-14 12:00] VITALS: BP 143/67
[2017-11-14 16:00] VITALS: BP 121/68
[2017-11-14 20:00] VITALS: BP 137/69
[2017-11-15] VITALS: BP 150/78
[2017-11-15 08:00] VITALS: BP 149/76
[2017-11-15] MEDS ORDERED: PREDNISONE50 MG PO (11:27)
[2017-11-15] MEDS ORDERED: TAMIFLU 75MG CA75 MG PO (11:27)
[2017-11-15] MEDS ORDERED: LEVAQUIN500 M2 PO (11:27)
== END 2017-11-15 12:30 | disposition home or self-care (01) | DRG 871 ==
LOC: ED 14:23 → 4E 16:21 → EDHOLD 16:21 → 4E 16:45
PROVIDERS: Physician Assistant; Registered Nurse
DX: A41.9 Sepsis, unspecified organism (principal); J18.9 Pneumonia, unspecified organism; E11.65 Type 2 diabetes mellitus with hyperglycemia; E66.01 Morbid (severe) obesity due to excess calories; J45.41 Moderate persistent asthma with (acute) exacerbation; J45.901 Unspecified asthma with (acute) exacerbation; R65.20 Severe sepsis without septic shock; I10 Essential (primary) hypertension; E55.9 Vitamin D deficiency, unspecified; E87.6 Hypokalemia; J20.9 Acute bronchitis, unspecified; E78.00 Pure hypercholesterolemia, unspecified; Z78.9 Other specified health status; Z79.2 Long term (current) use of antibiotics; Z68.42 Body mass index [BMI] 45.0-49.9, adult; Z79.84 Long term (current) use of oral hypoglycemic drugs; Z79.899 Other long term (current) drug therapy; Z82.5 Family history of asthma and other chronic lower respiratory diseases

== ENCOUNTER → 2017-11-25 | Outpatient (CLI) | payer BC, MEDICAID ==
[~2017-11-25] MED LIST changes: +KEPPRA1000 MG PO; +LEVAQUIN500 M2 PO; +METFORMIN500 MG PO; +TAMIFLU 75MG CA75 MG PO
== END | disposition home or self-care (01) ==
LOC: RESCLI 00:35
DX: Z09 Encounter for follow-up examination after completed treatment for conditions other than malignant neoplasm (principal); J45.901 Unspecified asthma with (acute) exacerbation; I10 Essential (primary) hypertension; R56.9 Unspecified convulsions; E78.5 Hyperlipidemia, unspecified; E11.9 Type 2 diabetes mellitus without complications; E66.01 Morbid (severe) obesity due to excess calories; Z91.048 Other nonmedicinal substance allergy status

== ENCOUNTER → 2017-12-02 | Outpatient (CLI) | payer BC, MEDICAID | END | disposition home or self-care (01) | LOC: RESCLI 03:17 | DX: I10 Essential (primary) hypertension (principal); R56.9 Unspecified convulsions; E78.5 Hyperlipidemia, unspecified; E11.9 Type 2 diabetes mellitus without complications; E66.01 Morbid (severe) obesity due to excess calories; J45.909 Unspecified asthma, uncomplicated; R00.0 Tachycardia, unspecified ==

== ENCOUNTER → 2018-02-03 | Outpatient (CLI) | payer BC, MEDICAID ==
[2018-02-03 14:41] LABS: BASO # 0.1 10*3/uL (0.0-0.1); BASO % 0.6 % (0.0-1.0); EOS # 0.3 10*3/uL (0.0-0.4); HEMATOCRIT 37.9 % (37.0-47.0); HEMOGLOBIN 11.4 g/dl (12.0-16.0); LYMPH # 2.4 10*3/uL (1.3-4.4); LYMPH % 25.1 % (27.0-41.0); MEAN CELL VOLUME 83.1 fl (81.0-99.0); MEAN CORPUSCULAR HGB CONC 30.1 g/dl (33.0-37.0); MEAN PLATELET VOLUME 12.9 fl (9.6-12.3); MONO # 0.7 10*3/uL (0.1-1.0); MONO % 6.8 % (3.0-9.0); NEUT # 6.1 10*3/uL (2.3-7.9); NEUT % 64.1 % (47.0-73.0); PLATELET COUNT AUTOMATED 227 10*3/uL (130-400); RED BLOOD COUNT 4.56 10*6/uL (4.10-5.10); RED CELL DISTRI WIDTH 14.8 % (0-14.5); RETICULOCYTE % 1.49 % (0.50-2.50); WHITE BLOOD COUNT 9.5 10*3/uL (4.8-10.8)
[2018-02-03 15:06] LABS: ALBUMIN 3.4 gm/dl (3.1-4.5); ALKALINE PHOSPHATASE 92 U/L (45-117); BUN 16 mg/dl (7-24); CHLORIDE 106 mmol/L (98-107); IRON 60 ug/dL (50-170); POTASSIUM 3.7 mmol/L (3.5-5.1); SGOT/AST 47 IU/L (3-35); SGPT/ALT 47 U/L (12-78); SODIUM 141 mmol/L (136-145); TOTAL PROTEIN 7.7 gm/dL (6.4-8.2)
[2018-02-03 15:11] LABS: TOTAL IRON BINDING CAPACITY 401 ug/dl (250-450)
[2018-02-03 15:28] LABS: FERRITIN 14.4 ng/mL (10.0-291.0); VITAMIN D, 25-HYDROXY 20.6 ng/mL (30-100)
== END | disposition home or self-care (01) ==
LOC: RESCLI 01:29
PROVIDERS: Internal Medicine
DX: I10 Essential (primary) hypertension (principal); R53.83 Other fatigue; E78.5 Hyperlipidemia, unspecified; E11.9 Type 2 diabetes mellitus without complications; R56.9 Unspecified convulsions; J45.909 Unspecified asthma, uncomplicated

== ENCOUNTER → 2018-03-24 | Outpatient (CLI) | payer BC ==
[2018-03-24 09:43] LABS: ALBUMIN 3.6 gm/dl (3.1-4.5); BUN 16 mg/dl (7-24); CHLORIDE 107 mmol/L (98-107); CREATININE 0.67 mg/dL (0.55-1.02); POTASSIUM 3.9 mmol/L (3.5-5.1); SODIUM 144 mmol/L (136-145)
[2018-03-24 09:45] LABS: ALKALINE PHOSPHATASE 93 U/L (45-117); SGOT/AST 33 IU/L (3-35); SGPT/ALT 33 U/L (12-78); TOTAL PROTEIN 7.6 gm/dL (6.4-8.2)
== END | disposition home or self-care (01) ==
LOC: LAB 08:28
PROVIDERS: Psychiatry & Neurology Neurology
DX: R41.3 Other amnesia (principal)

== ENCOUNTER 2019-12-06 07:55 | Inpatient (IN) | payer BC ==
[~2019-12-06] VITALS: Ht 157.5 cm; Wt 116.3 kg
[2019-12-06 08:00] VITALS: BP 114/82
[2019-12-06 09:10] LABS: BASO # 0.1 10*3/uL (0.0-0.1); BASO % 0.8 % (0.0-1.0); EOS # 0.4 10*3/uL (0.0-0.4); EOS % 5.1 % (1.0-4.0); HEMATOCRIT 38.3 % (37.0-47.0); HEMOGLOBIN 11.7 g/dl (12.0-16.0); LYMPH # 2.1 10*3/uL (1.3-4.4); LYMPH % 27.3 % (27.0-41.0); MEAN CELL VOLUME 83.3 fl (81.0-99.0); MEAN CORPUSCULAR HGB 25.4 pg (27.0-31.0); MEAN CORPUSCULAR HGB CONC 30.5 g/dl (33.0-37.0); MEAN PLATELET VOLUME 12.7 fl (9.6-12.3); MONO # 0.5 10*3/uL (0.1-1.0); MONO % 5.7 % (3.0-9.0); NEUT # 4.8 10*3/uL (2.3-7.9); NEUT % 60.6 % (47.0-73.0); PLATELET COUNT AUTOMATED 190 10*3/uL (130-400); RED CELL DISTRI WIDTH 14.5 % (0-14.5); WHITE BLOOD COUNT 7.8 10*3/uL (4.8-10.8)
[2019-12-06 09:19] LABS: ACT PARTIAL THROMBO TIME 26.5 SECONDS (20.0-32.1)
[2019-12-06 09:25] LABS: ALBUMIN 3.3 gm/dl (3.1-4.5); ALKALINE PHOSPHATASE 109 U/L (45-117); BUN 11 mg/dl (7-24); CHLORIDE 110 mmol/L (98-107); CREATININE 0.76 mg/dL (0.55-1.02); LIPASE 121 U/L (73-393); POTASSIUM 3.5 mmol/L (3.5-5.1); SGOT/AST 35 IU/L (3-35); SGPT/ALT 35 U/L (12-78); SODIUM 143 mmol/L (136-145); TOTAL PROTEIN 7.9 gm/dL (6.4-8.2)
[2019-12-06 09:29] LABS: TROPONIN I < 0.015 ng/ml (<0.045)
[2019-12-06 10:17] VITALS: BP 140/80
[2019-12-06 10:27] VITALS: BP 140/80
[2019-12-06 12:00] VITALS: BP 142/76
[2019-12-06 16:00] VITALS: BP 118/54
[2019-12-06 20:00] VITALS: BP 120/65
--- NOTE | 2019-12-06 20:00 | NUR ---
RESTING IN BED WITH HOB SLIGHTLY ELEVATED. HEP LOCK INTACT AT 98% ON ROOM AIR. LUNG VERY DIMINISHED BILATERALLY; NO COUGH NOTED AT THIS TIME. +3 BILATERAL LOWER EXTREMITY EDEMA NOTED. PT. VOICES NO C/O AT THIS TIME; NO DISTRESS NOTED. CALL LIGHT WITHIN REACH.
[2019-12-07] VITALS: BP 123/59
[2019-12-07 06:11] LABS: BASO % 0.1 % (0.0-1.0); HEMATOCRIT 34.2 % (37.0-47.0); HEMOGLOBIN 10.4 g/dl (12.0-16.0); LYMPH # 1.7 10*3/uL (1.3-4.4); LYMPH % 13.9 % (27.0-41.0); MEAN CELL VOLUME 83.2 fl (81.0-99.0); MEAN CORPUSCULAR HGB 25.3 pg (27.0-31.0); MEAN CORPUSCULAR HGB CONC 30.4 g/dl (33.0-37.0); MEAN PLATELET VOLUME 12.9 fl (9.6-12.3); MONO # 0.6 10*3/uL (0.1-1.0); MONO % 5.3 % (3.0-9.0); NEUT # 9.6 10*3/uL (2.3-7.9); NEUT % 79.8 % (47.0-73.0); PLATELET COUNT AUTOMATED 191 10*3/uL (130-400); RED BLOOD COUNT 4.11 10*6/uL (4.10-5.10); RED CELL DISTRI WIDTH 14.8 % (0-14.5); WHITE BLOOD COUNT 12.1 10*3/uL (4.8-10.8)
[2019-12-07 06:30] LABS: ALBUMIN 3.1 gm/dl (3.1-4.5); BUN 13 mg/dl (7-24); CHLORIDE 109 mmol/L (98-107); CHOLESTEROL 201 mg/dL (<200); CREATININE 0.76 mg/dL (0.55-1.02); HDL CHOLESTEROL 29 mg/dl (40-60); LDL CHOLESTEROL 149 mg/dL (9-159); PHOSPHOROUS 2.6 mg/dL (2.5-4.9); POTASSIUM 3.6 mmol/L (3.5-5.1); SGOT/AST 20 IU/L (3-35); SGPT/ALT 28 U/L (12-78); SODIUM 141 mmol/L (136-145); TOTAL PROTEIN 7.4 gm/dL (6.4-8.2); TRIGLYCERIDES 115 mg/dl (<150); VLDL CHOLESTEROL 23 mg/dL (6-40)
[2019-12-07 06:36] LABS: ALKALINE PHOSPHATASE 94 U/L (45-117); FREE T4 1.11 ng/dl (0.76-1.46); THYROID STIM HORMONE (HS) 0.466 uIU/ml (0.358-4.75)
--- NOTE | 2019-12-07 07:30 | NUR ---
ARRIVED ON SHIFT, INTRODUCED TO PATIENT, BED IN LOW POSITION, WHEEL LOCKS ENGAGED. CALL LIGHT WITHIN REACH, NO NEEDS VOICED AT THIS TIME, WHITE BOARD UPDATED.
[2019-12-07 07:56] LABS: VITAMIN D, 25-HYDROXY 22.8 ng/mL (30-100)
[2019-12-07 08:00] VITALS: BP 97/50
--- NOTE | 2019-12-07 09:00 | NUR ---
[employer] in to talk to patient. Patient states lives at home with boyfriend. There are no steps in the home. Physician: [facility] [place] [facility] services: none Patient's level of ADLs: INDEPENDENT Patient has working utilities: all working DME: nebulizer Follow-up physician's appointment after d/c: will be made by hospitalist nurse director upon discharge Does patient want to access PORTAL?: no Discharge plan discussed with patient, she lives at home with her boyfriend, she is independent in adls and ambulation, she states she will return home when medically stable and denies any home needs. KAILEY RODRIGUEZ
--- NOTE | 2019-12-07 11:11 | NUR ---
Nutritional Support Services Note: Met w/ pt to discuss diet. 1800 corie diet copy given. Pt states that she doesn't check sugars like she should, she drinks pop all day long (12 pk/d or more), and doesn't eat 3 meals a day. Stressed the importance of cutting back on her pop intake, suggested to start eating 3 meals/d, and educated on the importance of protein in her diet. Pt verbalized understanding of diet and stated that she would try making small changes. Continue to encourage good PO intakes. Will follow if needed. Kimmy Butler, [employer] intern
[2019-12-07 12:00] VITALS: BP 115/65
--- NOTE | 2019-12-07 15:44 | NUR ---
Shift chart check completed.
[2019-12-07 16:00] VITALS: BP 114/52
[2019-12-07 20:00] VITALS: BP 100/54
--- NOTE | 2019-12-07 20:00 | NUR ---
AA0X3 RESTING IN BED. PULSE OX 100% ON ROOM AIR. LUNGS DIMINISHED BILATERALLY WITH A DRY COUGH NOTED. PT. VOICES NO C/O AT THIS TIME; NO DISTRESS NOTED. CALL LIGHT WITHIN REACH.
[2019-12-08] VITALS: BP 128/66
--- NOTE | 2019-12-08 02:00 | NUR ---
RESTING IN BED WITH EYES CLOSED. CALL LIGHT WITHIN REACH.
--- NOTE | 2019-12-08 06:00 | NUR ---
BLOOD SUGAR 189; COVERGE PER EMAR.
[2019-12-08 08:00] VITALS: BP 140/82
--- NOTE | 2019-12-08 09:00 | NUR ---
case management visits with patient she states she will be discharged home today and denies any home needs, case management will follow
[2019-12-08] MEDS ORDERED: PREDNISONE10 MG PO (11:09)
[2019-12-08] MEDS ORDERED: BREO ELLIPTA 21 EACH IH (11:09)
--- NOTE | 2019-12-08 11:30 | NUR ---
PT DISCHARGED HOME AT THIS TIME. REFUSED WHEELCHAIR. PRESCRIPTIONS AND F/U CARE DISCUSSED. VSS.
== END 2019-12-08 11:30 | disposition home or self-care (01) | DRG 202 ==
LOC: ED 07:55 → EDHOLD 09:38 → 5E 09:38
PROVIDERS: Emergency Medicine; Family Medicine; ADMIT Internal Medicine
DX: J45.901 Unspecified asthma with (acute) exacerbation (principal); Z68.42 Body mass index [BMI] 45.0-49.9, adult; E87.8 Other disorders of electrolyte and fluid balance, not elsewhere classified; E11.65 Type 2 diabetes mellitus with hyperglycemia; I10 Essential (primary) hypertension; E78.00 Pure hypercholesterolemia, unspecified; E55.9 Vitamin D deficiency, unspecified; D64.9 Anemia, unspecified; R79.82 Elevated C-reactive protein (CRP); E66.01 Morbid (severe) obesity due to excess calories; Z87.01 Personal history of pneumonia (recurrent); Z90.710 Acquired absence of both cervix and uterus; Z82.5 Family history of asthma and other chronic lower respiratory diseases

== ENCOUNTER → 2019-12-15 | Outpatient (CLI) | payer BC | END | disposition home or self-care (01) | LOC: RESCLI 01:01 | DX: Z12.39 Encounter for other screening for malignant neoplasm of breast (principal); Z09 Encounter for follow-up examination after completed treatment for conditions other than malignant neoplasm; Z12.11 Encounter for screening for malignant neoplasm of colon; E66.9 Obesity, unspecified; I10 Essential (primary) hypertension; J45.909 Unspecified asthma, uncomplicated; J30.2 Other seasonal allergic rhinitis; E78.5 Hyperlipidemia, unspecified; E11.9 Type 2 diabetes mellitus without complications; E55.9 Vitamin D deficiency, unspecified; E53.8 Deficiency of other specified B group vitamins; Z79.899 Other long term (current) drug therapy ==

== ENCOUNTER 2019-12-26 19:59 | Inpatient (IN) | payer BC ==
[~2019-12-26] VITALS: Ht 157.4 cm; Wt 114.8 kg
[2019-12-26 20:15] VITALS: BP 152/106
[2019-12-26 20:53] LABS: BASO # 0.1 10*3/uL (0.0-0.1); BASO % 0.9 % (0.0-1.0); EOS # 0.3 10*3/uL (0.0-0.4); EOS % 4.4 % (1.0-4.0); HEMATOCRIT 36.5 % (37.0-47.0); LYMPH # 1.6 10*3/uL (1.3-4.4); LYMPH % 22.8 % (27.0-41.0); MEAN CELL VOLUME 83.5 fl (81.0-99.0); MEAN CORPUSCULAR HGB 25.2 pg (27.0-31.0); MEAN CORPUSCULAR HGB CONC 30.1 g/dl (33.0-37.0); MEAN PLATELET VOLUME 12.6 fl (9.6-12.3); MONO # 0.6 10*3/uL (0.1-1.0); MONO % 9.1 % (3.0-9.0); NEUT # 4.3 10*3/uL (2.3-7.9); NEUT % 62.7 % (47.0-73.0); PLATELET COUNT AUTOMATED 138 10*3/uL (130-400); RED BLOOD COUNT 4.37 10*6/uL (4.10-5.10); RED CELL DISTRI WIDTH 15.8 % (0-14.5); WHITE BLOOD COUNT 6.8 10*3/uL (4.8-10.8)
[2019-12-26 21:04] LABS: ACT PARTIAL THROMBO TIME 26.9 SECONDS (20.0-32.1)
[2019-12-26 21:11] LABS: ALBUMIN 3.3 gm/dl (3.1-4.5); ALKALINE PHOSPHATASE 78 U/L (45-117); BUN 11 mg/dl (7-24); CHLORIDE 106 mmol/L (98-107); CREATININE 0.88 mg/dL (0.55-1.02); POTASSIUM 3.6 mmol/L (3.5-5.1); SGOT/AST 62 IU/L (3-35); SGPT/ALT 61 U/L (12-78); SODIUM 137 mmol/L (136-145); TOTAL PROTEIN 7.1 gm/dL (6.4-8.2)
[2019-12-26 21:15] LABS: TROPONIN I < 0.015 ng/ml (<0.045)
--- NOTE | 2019-12-27 00:35 | NUR ---
A 54, admitted to , under the services of ASA Degroot DO with a diagnosis of ASTHMA. Chief complaint is SHORTNESS OF BREATH. Patient arrived via wheel chair from ER. Monitor applied. Initial assessment completed. Vital signs taken and recorded. ASA DEGROOT DO notified of admission to the unit. Orders received. See assessment for past medical history, medications and allergies. Patient and/or family oriented to unit. [facility]. Clothing/patient valuable form completed. PAYTON JEROME
[2019-12-27] MEDS ORDERED: BREO ELLIPTA 21 EACH INH (00:38)
[2019-12-27] MEDS ORDERED: FOLGARD TABLET1 EACH PO (00:39)
[2019-12-27] MEDS ORDERED: ATORVASTATIN CA40 M1 PO (00:39)
[2019-12-27] MEDS ORDERED: MONTELUKAST SOD10 MG PO (00:41)
[2019-12-27] MEDS ORDERED: NATURE'S BLEND F1 MG PO (00:41)
[2019-12-27] MEDS ORDERED: LISINOPRIL2.5 MG PO (00:41)
[2019-12-27] MEDS ORDERED: GLUCOPHAGE500 M1 PO (00:42)
[2019-12-27 00:52] VITALS: BP 123/89
[2019-12-27 00:57] VITALS: BP 123/89
[2019-12-27 06:06] LABS: BUN 10 mg/dl (7-24); CHLORIDE 106 mmol/L (98-107); CREATININE 0.83 mg/dL (0.55-1.02); PHOSPHOROUS 3.3 mg/dL (2.5-4.9); POTASSIUM 3.6 mmol/L (3.5-5.1); SODIUM 137 mmol/L (136-145)
--- NOTE | 2019-12-27 06:10 | NUR ---
DR ANDINO AWARE OF CONSULT. NO ORDERS
[2019-12-27 06:15] LABS: BASO % 0.5 % (0.0-1.0); EOS % 0.7 % (1.0-4.0); HEMATOCRIT 36.9 % (37.0-47.0); HEMOGLOBIN 11.2 g/dl (12.0-16.0); LYMPH # 0.5 10*3/uL (1.3-4.4); LYMPH % 10.8 % (27.0-41.0); MEAN CELL VOLUME 83.3 fl (81.0-99.0); MEAN CORPUSCULAR HGB 25.3 pg (27.0-31.0); MEAN CORPUSCULAR HGB CONC 30.4 g/dl (33.0-37.0); MEAN PLATELET VOLUME 13.2 fl (9.6-12.3); MONO # 0.1 10*3/uL (0.1-1.0); MONO % 1.2 % (3.0-9.0); NEUT # 3.6 10*3/uL (2.3-7.9); NEUT % 86.3 % (47.0-73.0); PLATELET COUNT AUTOMATED 122 10*3/uL (130-400); RED BLOOD COUNT 4.43 10*6/uL (4.10-5.10); RED CELL DISTRI WIDTH 15.7 % (0-14.5); WHITE BLOOD COUNT 4.2 10*3/uL (4.8-10.8)
[2019-12-27 08:00] VITALS: BP 120/70
--- NOTE | 2019-12-27 09:00 | NUR ---
Associate Agent [employer] in to talk to patient. Patient states lives at home with boyfriend. There are no steps in the home. Physician: [facility] [place] [facility]: none Patient's level of ADLs: INDEPENDENT Patient has working utilities: all working DME: nebulizer Follow-up physician's appointment after d/c: will be made by hospitalist nurse director upon discharge Does patient want to access PORTAL?: no Discharge plan discussed with patient, she lives at home with boyfriend, she is independent in adls and ambulation works and drives, she states she will return home when medically stable and denies any home needs. KAILEY RODRIGUEZ
--- NOTE | 2019-12-27 09:34 | NUR ---
PT RESTING IN BED. NO DISTRESS NOTED. WILL MONITOR
[2019-12-27 12:00] VITALS: BP 133/81
[2019-12-27 16:00] VITALS: BP 134/78
[2019-12-27 20:00] VITALS: BP 142/82
--- NOTE | 2019-12-27 23:38 | NUR ---
24 HR chart check completed.
[2019-12-28] VITALS: BP 112/59
--- NOTE | 2019-12-28 06:28 | NUR ---
MEDICATED WITH PRN ROBITUSSIN FOR COUGH. WILL MONITOR
[2019-12-28 08:00] VITALS: BP 128/60
--- NOTE | 2019-12-28 08:45 | NUR ---
PT RESTING IN BED. NO DISTRESS NOTED. WILL MONITOR
--- NOTE | 2019-12-28 09:00 | NUR ---
case management visits with patient, she states neal return home when medically stable and denies any home needs
[2019-12-28 12:00] VITALS: BP 128/63
--- NOTE | 2019-12-28 13:30 | NUR ---
PT REQUESTED AND GIVEN TYLENOL FOR C/O PAIN WILL MONITOR
[2019-12-28 16:00] VITALS: BP 105/55
--- NOTE | 2019-12-28 16:00 | NUR ---
PT STATES THAT TYLENOL HELPED WILL MONITOR
--- NOTE | 2019-12-28 19:54 | NUR ---
PATIENT RESTING IN BED WITH VISITOR AT BEDSIDE. NO NEEDS MADE. BED IN LOWEST POSITION, CALL LIGHT IN REACH
[2019-12-28 20:00] VITALS: BP 147/81
[2019-12-29] VITALS: BP 106/57
--- NOTE | 2019-12-29 02:30 | NUR ---
24 HR chart check completed.
--- NOTE | 2019-12-29 06:12 | NUR ---
MEDICATED WITH PRN ROBITUSSIN FOR C/O COUGHING. WILL MONITOR
[2019-12-29 08:00] VITALS: BP 112/56
--- NOTE | 2019-12-29 09:00 | NUR ---
case management visits with patient, she states she will return home when medically stable, patient not stable for discharge at this time, case management will follow
--- NOTE | 2019-12-29 11:54 | NUR ---
BSG 224. 3 UNITS OF INSULIN GIVEN PER S/S. WILL CONTINUE TO MONITOR.
[2019-12-29 12:00] VITALS: BP 110/50
[2019-12-29 16:00] VITALS: BP 131/77
[2019-12-29 20:00] VITALS: BP 116/59
[2019-12-30] VITALS (8 sets, daily range): BP systolic 125–149; BP diastolic 70–110
[2019-12-30 06:28] LABS: HEMATOCRIT 37.3 % (37.0-47.0); HEMOGLOBIN 11.3 g/dl (12.0-16.0); MEAN CELL VOLUME 84.4 fl (81.0-99.0); MEAN CORPUSCULAR HGB 25.6 pg (27.0-31.0); MEAN CORPUSCULAR HGB CONC 30.3 g/dl (33.0-37.0); MEAN PLATELET VOLUME 13.2 fl (9.6-12.3); PLATELET COUNT AUTOMATED 162 10*3/uL (130-400); RED BLOOD COUNT 4.42 10*6/uL (4.10-5.10); RED CELL DISTRI WIDTH 16.5 % (0-14.5); WHITE BLOOD COUNT 11.6 10*3/uL (4.8-10.8)
[2019-12-30 06:54] LABS: CREATININE 0.83 mg/dL (0.55-1.02)
[2019-12-30 07:08] LABS: TOTAL CELLS COUNTED 100 #CELLS
[2019-12-30 07:09] LABS: PLATELET SUFFICIENCY NORMAL (NORMAL)
--- NOTE | 2019-12-30 07:37 | NUR ---
SURGERY HERE TO TRANSPORT PATIENT FOR SCHEDULED BRONCH.
--- NOTE | 2019-12-30 09:00 | NUR ---
case management visits with patient, she states she will return home when medically stable, tenative discharge date is tomorrow, Friday 13
--- NOTE | 2019-12-30 10:00 | NUR ---
PATIENT RETURNED TO ROOM.
--- NOTE | 2019-12-30 16:00 | NUR ---
Patient resting quietly with no c/o discomfort. Respirations easy and regular. Vital signs stable. No overt distress. HUEY MADRIGAL
--- NOTE | 2019-12-30 19:10 | NUR ---
REPORT OBTAINED FROM PRIOR NURSE. PATIENT IS RESTING IN BED, VOICED NO COMPLAINTS. BED IS LOCKED IN LOWEST POSITION. CALL LIGHT WITHIN REACH
[2019-12-31] VITALS: BP 136/88
[2019-12-31 07:24] LABS: BASO % 0.2 % (0.0-1.0); EOS # 0.1 10*3/uL (0.0-0.4); EOS % 0.4 % (1.0-4.0); HEMATOCRIT 38.3 % (37.0-47.0); HEMOGLOBIN 11.5 g/dl (12.0-16.0); LYMPH # 2.2 10*3/uL (1.3-4.4); LYMPH % 16.9 % (27.0-41.0); MEAN CORPUSCULAR HGB 25.2 pg (27.0-31.0); MEAN PLATELET VOLUME 13.7 fl (9.6-12.3); MONO # 0.6 10*3/uL (0.1-1.0); MONO % 4.9 % (3.0-9.0); NEUT % 76.4 % (47.0-73.0); PLATELET COUNT AUTOMATED 186 10*3/uL (130-400); RED BLOOD COUNT 4.56 10*6/uL (4.10-5.10); RED CELL DISTRI WIDTH 16.8 % (0-14.5)
[2019-12-31 07:45] LABS: BUN 17 mg/dl (7-24); CHLORIDE 103 mmol/L (98-107); CREATININE 0.82 mg/dL (0.55-1.02); POTASSIUM 4.1 mmol/L (3.5-5.1); SODIUM 137 mmol/L (136-145)
[2019-12-31 08:00] VITALS: BP 142/78
[2019-12-31 12:00] VITALS: BP 150/88
[2019-12-31 13:06] LABS: ACID FAST SPEC PROCESSING Concentration (.)
[2019-12-31 16:00] VITALS: BP 115/60
--- NOTE | 2019-12-31 20:43 | NUR ---
AWARE THAT BGM OF 412. STATED TO COVERAGE WITH SSI SCALE OF 14 UNITS.
[2019-12-31 22:01] VITALS: BP 124/65
[2020-01-01] VITALS: BP 113/73
[2020-01-01 08:00] VITALS: BP 136/76
[2020-01-01 12:00] VITALS: BP 115/72
[2020-01-01 16:00] VITALS: BP 142/72
[2020-01-01 20:00] VITALS: BP 126/70
[2020-01-02] VITALS: BP 128/78
[2020-01-02 06:46] LABS: HEMATOCRIT 40.5 % (37.0-47.0); HEMOGLOBIN 12.3 g/dl (12.0-16.0); MEAN CELL VOLUME 81.8 fl (81.0-99.0); MEAN CORPUSCULAR HGB 24.8 pg (27.0-31.0); MEAN CORPUSCULAR HGB CONC 30.4 g/dl (33.0-37.0); MEAN PLATELET VOLUME 12.7 fl (9.6-12.3); RED BLOOD COUNT 4.95 10*6/uL (4.10-5.10); WHITE BLOOD COUNT 13.5 10*3/uL (4.8-10.8)
[2020-01-02 06:54] LABS: PLATELET COUNT AUTOMATED 274 10*3/uL (130-400)
[2020-01-02 06:59] LABS: BUN 25 mg/dl (7-24); CHLORIDE 101 mmol/L (98-107); CREATININE 0.87 mg/dL (0.55-1.02); POTASSIUM 4.1 mmol/L (3.5-5.1); SODIUM 135 mmol/L (136-145)
[2020-01-02 07:50] LABS: PLATELET SUFFICIENCY NORMAL (NORMAL); TOTAL CELLS COUNTED 100 #CELLS
[2020-01-02 08:00] VITALS: BP 148/91
--- NOTE | 2020-01-02 11:51 | NUR ---
PT REFUSED 6 MINUTE WALK. PT STATES SHE HAS NOT BEEN ON OXYGEN SINCE SHE CAME IN LAST FRIDAY. NURSE AND DR NOTIFIED OF REFUSAL
[2020-01-02 12:00] VITALS: BP 120/87
[2020-01-02] MEDS ORDERED: PREDNISONE10 MG PO (12:28)
[2020-01-02] MEDS ORDERED: Ipratropium Brom3 ML INH (12:28)
[2020-01-02] MEDS ORDERED: MUCINEX1200 M1 PO (12:28)
[2020-01-02] MEDS ORDERED: AUGMENTIN 875875 MG PO (12:28)
--- NOTE | 2020-01-02 12:44 | NUR ---
UNABLE TO OBTAIN BGL AFTER MULTIPLE STICKS. READDS ERROR. REFLUX ORDERED.
--- NOTE | 2020-01-02 14:40 | NUR ---
Discharge instructions reviewed with patient/family. Patient receptive and verbalizes understanding. Follow-up care arranged. Written instructions given to patient/family. MARCO A LLOYD
== END 2020-01-02 14:40 | disposition home or self-care (01) | DRG 202 ==
LOC: ED 19:59 → EDHOLD 22:13 → 4E 22:13
PROVIDERS: Emergency Medicine; Family Medicine; Internal Medicine; Internal Medicine Critical Care Medicine; ADMIT Emergency Medicine
PROC: 0B918ZZ Drainage of Trachea, Via Natural or Artificial Opening Endoscopic (ICD-10-PCS; principal; 2019-12-30)
PROC: 0B948ZZ Drainage of Right Upper Lobe Bronchus, Via Natural or Artificial Opening Endoscopic (ICD-10-PCS; principal; 2019-12-30)
PROC: 0B998ZZ Drainage of Lingula Bronchus, Via Natural or Artificial Opening Endoscopic (ICD-10-PCS; principal; 2019-12-30)
PROC: 0B958ZZ Drainage of Right Middle Lobe Bronchus, Via Natural or Artificial Opening Endoscopic (ICD-10-PCS; principal; 2019-12-30)
PROC: 0B968ZZ Drainage of Right Lower Lobe Bronchus, Via Natural or Artificial Opening Endoscopic (ICD-10-PCS; principal; 2019-12-30)
PROC: 0B9B8ZZ Drainage of Left Lower Lobe Bronchus, Via Natural or Artificial Opening Endoscopic (ICD-10-PCS; principal; 2019-12-30)
PROC: 0B988ZZ Drainage of Left Upper Lobe Bronchus, Via Natural or Artificial Opening Endoscopic (ICD-10-PCS; principal; 2019-12-30)
DX: J20.1 Acute bronchitis due to Hemophilus influenzae (principal); J45.901 Unspecified asthma with (acute) exacerbation; Z68.42 Body mass index [BMI] 45.0-49.9, adult; E44.1 Mild protein-calorie malnutrition; E66.01 Morbid (severe) obesity due to excess calories; I10 Essential (primary) hypertension; E55.9 Vitamin D deficiency, unspecified; E11.65 Type 2 diabetes mellitus with hyperglycemia; E78.00 Pure hypercholesterolemia, unspecified; D64.9 Anemia, unspecified; D72.829 Elevated white blood cell count, unspecified; T38.0X5A Adverse effect of glucocorticoids and synthetic analogues, initial encounter; Y92.89 Other specified places as the place of occurrence of the external cause; Z82.5 Family history of asthma and other chronic lower respiratory diseases; Z79.899 Other long term (current) drug therapy

== ENCOUNTER 2020-02-04 20:21 | Emergency (ER) | payer BC ==
[~2020-02-04] VITALS: Ht 170.1 cm; Wt 102.1 kg
[~2020-02-04 20:21] MED LIST changes: +ATORVASTATIN CA40 M1 PO; +AUGMENTIN 875875 MG PO; +BREO ELLIPTA 21 EACH INH; +FOLGARD TABLET1 EACH PO; +GLUCOPHAGE500 M1 PO; +Ipratropium Brom3 ML INH; +LISINOPRIL2.5 MG PO; +MONTELUKAST SOD10 MG PO; +MUCINEX1200 M1 PO; +NATURE'S BLEND F1 MG PO
[2020-02-04 20:56] LABS: BASO # 0.1 10*3/uL (0.0-0.1); BASO % 0.8 % (0.0-1.0); EOS # 0.2 10*3/uL (0.0-0.4); EOS % 1.9 % (1.0-4.0); HEMATOCRIT 38.6 % (37.0-47.0); LYMPH # 2.9 10*3/uL (1.3-4.4); LYMPH % 26.7 % (27.0-41.0); MEAN CELL VOLUME 84.8 fl (81.0-99.0); MEAN CORPUSCULAR HGB 25.5 pg (27.0-31.0); MEAN CORPUSCULAR HGB CONC 30.1 g/dl (33.0-37.0); MEAN PLATELET VOLUME 12.7 fl (9.6-12.3); MONO # 0.7 10*3/uL (0.1-1.0); MONO % 6.8 % (3.0-9.0); NEUT # 6.8 10*3/uL (2.3-7.9); NEUT % 63.2 % (47.0-73.0); PLATELET COUNT AUTOMATED 221 10*3/uL (130-400); RED BLOOD COUNT 4.55 10*6/uL (4.10-5.10); RED CELL DISTRI WIDTH 16.4 % (0-14.5); WHITE BLOOD COUNT 10.7 10*3/uL (4.8-10.8)
[2020-02-04 21:06] LABS: ACT PARTIAL THROMBO TIME 25.7 SECONDS (20.0-32.1); INTERNATIONAL NORM RATIO 1.1 (2.0-3.5)
[2020-02-04 21:15] LABS: ALBUMIN 3.1 gm/dl (3.1-4.5); ALKALINE PHOSPHATASE 88 U/L (45-117); BUN 8 mg/dl (7-24); CHLORIDE 109 mmol/L (98-107); CKMB < 1.0 ng/ml (0.5-3.6); CREATININE 0.79 mg/dL (0.55-1.02); POTASSIUM 3.7 mmol/L (3.5-5.1); SGOT/AST 39 IU/L (3-35); SGPT/ALT 38 U/L (12-78); SODIUM 140 mmol/L (136-145); TOTAL PROTEIN 7.2 gm/dL (6.4-8.2)
[2020-02-04 21:47] LABS: BACTERIA 1+; BILIRUBIN NEGATIVE (NEGATIVE); BLOOD NEGATIVE (NEGATIVE); CLARITY SL CLOUDY (CLEAR); COLOR YELLOW (YELLOW); EPITHELIAL CELLS 21-30; GLUCOSE NEGATIVE (NEGATIVE); KETONE NEGATIVE (NEGATIVE); LEUKO ESTERASE TRACE (NEGATIVE); NITRITE NEGATIVE (NEGATIVE); RBC 0-2 rbc/hpf (0-2); SPECIFIC GRAVITY 1.015 (1.005-1.030); UROBILINOGEN 0.2 E.U./dl (0.2-1.0)
== END 2020-02-04 23:50 | disposition short-term general hospital (02) ==
LOC: ED 20:21
PROVIDERS: Emergency Medicine Emergency Medical Services; Internal Medicine
DX: R56.9 Unspecified convulsions (principal); I10 Essential (primary) hypertension; E11.9 Type 2 diabetes mellitus without complications; E78.00 Pure hypercholesterolemia, unspecified; J45.909 Unspecified asthma, uncomplicated; Z79.899 Other long term (current) drug therapy

== ENCOUNTER 2020-03-30 16:03 | Emergency (ER) | payer BC ==
[~2020-03-30] VITALS: Ht 157.4 cm; Wt 117.9 kg
[2020-03-30] MEDS ORDERED: TYLENOL325 M1 PO (16:40)
[2020-03-30] MEDS ORDERED: SEPTDS PO (16:40)
[2020-03-30] MEDS ORDERED: NAPROXEN250 MG PO (16:40)
== END 2020-03-30 16:44 | disposition home or self-care (01) ==
LOC: ED 16:03
DX: L03.213 Periorbital cellulitis (principal); I10 Essential (primary) hypertension; J45.909 Unspecified asthma, uncomplicated; E66.01 Morbid (severe) obesity due to excess calories; Z68.42 Body mass index [BMI] 45.0-49.9, adult; Z79.899 Other long term (current) drug therapy

== ENCOUNTER → 2020-03-31 | Outpatient (CLI) | payer SELFPAY ==
[~2020-03-31] MED LIST changes: +NAPROXEN250 MG PO; +SEPTDS PO; +TYLENOL325 M1 PO
== END | disposition home or self-care (01) ==
LOC: RESCLI 05:20
DX: Z12.31 Encounter for screening mammogram for malignant neoplasm of breast (principal); I10 Essential (primary) hypertension; E66.9 Obesity, unspecified; E78.5 Hyperlipidemia, unspecified; J30.2 Other seasonal allergic rhinitis; E11.9 Type 2 diabetes mellitus without complications; E55.9 Vitamin D deficiency, unspecified; L03.213 Periorbital cellulitis; E53.8 Deficiency of other specified B group vitamins; G40.909 Epilepsy, unspecified, not intractable, without status epilepticus; Z12.11 Encounter for screening for malignant neoplasm of colon; Z12.4 Encounter for screening for malignant neoplasm of cervix; Z79.899 Other long term (current) drug therapy; Z98.890 Other specified postprocedural states; Z88.8 Allergy status to other drugs, medicaments and biological substances

== ENCOUNTER → 2020-06-23 | Outpatient (CLI) | payer BC | END | disposition home or self-care (01) | LOC: LAB 08:01 | PROVIDERS: ATTEND Nurse Practitioner Family | DX: R56.9 Unspecified convulsions (principal) ==

== ENCOUNTER → 2020-10-17 | Outpatient (CLI) | payer BC | END | disposition home or self-care (01) | LOC: RESCLI 00:51 | PROVIDERS: ATTEND Student in an Organized Health Care Education/Training Program | DX: I10 Essential (primary) hypertension (principal); J45.909 Unspecified asthma, uncomplicated; E53.8 Deficiency of other specified B group vitamins; E78.5 Hyperlipidemia, unspecified; G40.909 Epilepsy, unspecified, not intractable, without status epilepticus; Z98.890 Other specified postprocedural states ==

== ENCOUNTER → 2021-03-30 | Outpatient (CLI) | payer BC ==
[2021-03-30 09:44] LABS: ALBUMIN 3.3 gm/dl (3.1-4.5); ALKALINE PHOSPHATASE 114 U/L (45-117); BUN 9 mg/dl (7-24); CHLORIDE 106 mmol/L (98-107); CREATININE 0.65 mg/dL (0.55-1.02); POTASSIUM 3.8 mmol/L (3.5-5.1); SGOT/AST 37 IU/L (3-35); SGPT/ALT 44 U/L (12-78); SODIUM 141 mmol/L (136-145); TOTAL PROTEIN 7.8 gm/dL (6.4-8.2)
== END | disposition home or self-care (01) ==
LOC: LAB 09:10
PROVIDERS: ATTEND Nurse Practitioner Family
DX: R56.9 Unspecified convulsions (principal)

== ENCOUNTER → 2021-04-26 | Outpatient (CLI) | payer BC ==
[2021-04-26 11:04] LABS: BASO # 0.1 10*3/uL (0.0-0.1); BASO % 0.8 % (0.0-1.0); EOS # 0.5 10*3/uL (0.0-0.4); EOS % 5.6 % (1.0-4.0); HEMATOCRIT 42.5 % (37.0-47.0); LYMPH % 32.7 % (27.0-41.0); MEAN CELL VOLUME 90.2 fl (81.0-99.0); MEAN CORPUSCULAR HGB 28.2 pg (27.0-31.0); MEAN CORPUSCULAR HGB CONC 31.3 g/dl (33.0-37.0); MEAN PLATELET VOLUME 12.5 fl (9.6-12.3); MONO # 0.5 10*3/uL (0.1-1.0); MONO % 5.9 % (3.0-9.0); NEUT % 54.5 % (47.0-73.0); PLATELET COUNT AUTOMATED 154 10*3/uL (130-400); RED BLOOD COUNT 4.71 10*6/uL (4.10-5.10); RED CELL DISTRI WIDTH 13.2 % (0-14.5); WHITE BLOOD COUNT 9.2 10*3/uL (4.8-10.8)
[2021-04-26 11:05] LABS: BILIRUBIN Negative (Negative); BLOOD Negative (Negative); CLARITY Clear (Clear); COLOR Yellow (Yellow); GLUCOSE 2+ (Negative); KETONE Trace (Negative); LEUKO ESTERASE Negative (Negative); NITRITE Negative (Negative); PH 5.5 (4.5-8.0); SPECIFIC GRAVITY 1.025 (1.001-1.030)
[2021-04-26 11:25] LABS: ALBUMIN 3.3 gm/dl (3.1-4.5); BUN 7 mg/dl (7-24); CHLORIDE 109 mmol/L (98-107); SODIUM 140 mmol/L (136-145); TRIGLYCERIDES 134 mg/dl (<150)
[2021-04-26 11:26] LABS: BACTERIA TRACE; MUCOUS 2+
[2021-04-26 11:31] LABS: ALKALINE PHOSPHATASE 113 U/L (45-117); CHOLESTEROL 161 mg/dL (<200); CREATININE 0.65 mg/dL (0.55-1.02); IRON 88 ug/dL (50-170); LDL CHOLESTEROL 90 mg/dL (9-159); POTASSIUM 3.7 mmol/L (3.5-5.1); TOTAL IRON BINDING CAPACITY 303 ug/dl (250-450); TOTAL PROTEIN 7.8 gm/dL (6.4-8.2)
[2021-04-26 11:33] LABS: SGOT/AST 37 IU/L (3-35); SGPT/ALT 49 U/L (12-78)
[2021-04-26 11:44] LABS: FERRITIN 40.8 ng/mL (10.0-291.0); VITAMIN D, 25-HYDROXY 45.7 ng/mL (30-100)
== END | disposition home or self-care (01) ==
LOC: RESCLI 00:30
PROVIDERS: Student in an Organized Health Care Education/Training Program; ATTEND Internal Medicine
DX: E11.9 Type 2 diabetes mellitus without complications (principal); E78.5 Hyperlipidemia, unspecified; J45.909 Unspecified asthma, uncomplicated; J30.2 Other seasonal allergic rhinitis; E55.9 Vitamin D deficiency, unspecified; I10 Essential (primary) hypertension; E66.01 Morbid (severe) obesity due to excess calories; D64.9 Anemia, unspecified; Z12.31 Encounter for screening mammogram for malignant neoplasm of breast; G40.909 Epilepsy, unspecified, not intractable, without status epilepticus; Z79.84 Long term (current) use of oral hypoglycemic drugs; Z79.899 Other long term (current) drug therapy; Z72.89 Other problems related to lifestyle

== ENCOUNTER → 2022-04-02 | Outpatient (CLI) | payer BC ==
[2022-04-02 10:13] LABS: ALKALINE PHOSPHATASE 95 U/L (45-117); BUN 17 mg/dl (7-24); CHLORIDE 111 mmol/L (98-107); CREATININE 0.64 mg/dL (0.55-1.02); SGOT/AST 36 IU/L (3-35); SGPT/ALT 42 U/L (12-78); SODIUM 143 mmol/L (136-145); TOTAL PROTEIN 7.4 gm/dL (6.4-8.2)
== END | disposition home or self-care (01) ==
LOC: LAB 09:10
PROVIDERS: ATTEND Nurse Practitioner Family
DX: R56.9 Unspecified convulsions (principal)

== ENCOUNTER → 2022-05-09 | Outpatient (CLI) | payer BC | END | disposition home or self-care (01) | LOC: RESCLI 01:08 | PROVIDERS: ATTEND Internal Medicine | DX: I10 Essential (primary) hypertension (principal); E11.9 Type 2 diabetes mellitus without complications; J45.909 Unspecified asthma, uncomplicated; E78.5 Hyperlipidemia, unspecified; R56.9 Unspecified convulsions; D64.9 Anemia, unspecified; Z79.899 Other long term (current) drug therapy; Z79.01 Long term (current) use of anticoagulants ==

== ENCOUNTER → 2022-06-04 | Outpatient (CLI) | payer BC ==
[2022-06-04 09:34] LABS: BASO # 0.1 10*3/uL (0.0-0.1); BASO % 0.8 % (0.0-1.0); EOS # 0.5 10*3/uL (0.0-0.4); HEMATOCRIT 42.7 % (37.0-47.0); LYMPH # 2.5 10*3/uL (1.3-4.4); LYMPH % 27.3 % (27.0-41.0); MEAN CELL VOLUME 91.2 fl (81.0-99.0); MEAN CORPUSCULAR HGB 29.3 pg (27.0-31.0); MEAN CORPUSCULAR HGB CONC 32.1 g/dl (33.0-37.0); MEAN PLATELET VOLUME 12.2 fl (9.6-12.3); MONO # 0.5 10*3/uL (0.1-1.0); NEUT # 5.5 10*3/uL (2.3-7.9); NEUT % 60.6 % (47.0-73.0); PLATELET COUNT AUTOMATED 180 10*3/uL (130-400); RED BLOOD COUNT 4.68 10*6/uL (4.10-5.10); RED CELL DISTRI WIDTH 12.5 % (0-14.5); WHITE BLOOD COUNT 9.1 10*3/uL (4.8-10.8)
[2022-06-04 10:13] LABS: BILIRUBIN Negative (Negative); BLOOD Negative (Negative); CLARITY Clear (Clear); COLOR Yellow (Yellow); GLUCOSE Negative (Negative); KETONE Negative (Negative); LEUKO ESTERASE Negative (Negative); NITRITE Negative (Negative); PH 5.5 (4.5-8.0); SPECIFIC GRAVITY 1.015 (1.001-1.030)
[2022-06-04 10:44] LABS: BUN 11 mg/dl (7-24); CHLORIDE 107 mmol/L (98-107); CREATININE 0.71 mg/dL (0.55-1.02); POTASSIUM 4.1 mmol/L (3.5-5.1); SGOT/AST 32 IU/L (3-35); SGPT/ALT 42 U/L (12-78); SODIUM 140 mmol/L (136-145); TOTAL PROTEIN 7.8 gm/dL (6.4-8.2)
[2022-06-04 10:46] LABS: ALKALINE PHOSPHATASE 104 U/L (45-117); CHOLESTEROL 175 mg/dL (<200); LDL CHOLESTEROL 98 mg/dL (9-159); TRIGLYCERIDES 129 mg/dl (<150)
[2022-06-04 10:58] LABS: BACTERIA 2+
[2022-06-04 10:59] LABS: EPITHELIAL CELLS 0-2; WBC 0-2 wbc/hpf (0-5)
== END | disposition home or self-care (01) ==
LOC: LAB 08:59
PROVIDERS: Internal Medicine; ATTEND Internal Medicine
DX: E11.9 Type 2 diabetes mellitus without complications (principal); E78.5 Hyperlipidemia, unspecified; D64.9 Anemia, unspecified; I10 Essential (primary) hypertension

== ENCOUNTER → 2022-08-05 | Day surgery (SDC) | payer BC ==
[~2022-08-05] VITALS: Ht 160 cm; Wt 114.3 kg
[~2022-08-05] MED LIST changes: +KEPPRA750 MG PO
[2022-08-05 07:30] VITALS: BP 137/84
[2022-08-05 08:58] VITALS: BP 128/77
[2022-08-05 09:13] VITALS: BP 110/65
[2022-08-05 09:28] VITALS: BP 115/67
== END | disposition home or self-care (01) ==
LOC: SDC 06-10 11:30
PROVIDERS: ATTEND Surgery
DX: D64.9 Anemia, unspecified (principal); D12.3 Benign neoplasm of transverse colon; D12.4 Benign neoplasm of descending colon; I10 Essential (primary) hypertension; E11.9 Type 2 diabetes mellitus without complications; J45.909 Unspecified asthma, uncomplicated; G40.909 Epilepsy, unspecified, not intractable, without status epilepticus; E78.00 Pure hypercholesterolemia, unspecified; Z79.899 Other long term (current) drug therapy

== ENCOUNTER → 2022-08-27 | Outpatient (CLI) | payer BC | END | disposition home or self-care (01) | LOC: RESCLI 04:47 | PROVIDERS: ATTEND Nurse Practitioner | DX: E11.9 Type 2 diabetes mellitus without complications (principal); K62.9 Disease of anus and rectum, unspecified; N28.1 Cyst of kidney, acquired; R16.1 Splenomegaly, not elsewhere classified; R16.0 Hepatomegaly, not elsewhere classified; M51.36 Other intervertebral disc degeneration, lumbar region; K82.8 Other specified diseases of gallbladder; K76.89 Other specified diseases of liver; I10 Essential (primary) hypertension; J45.909 Unspecified asthma, uncomplicated; E78.5 Hyperlipidemia, unspecified; R56.9 Unspecified convulsions; Z88.8 Allergy status to other drugs, medicaments and biological substances; Z98.890 Other specified postprocedural states; Z79.84 Long term (current) use of oral hypoglycemic drugs; Z79.899 Other long term (current) drug therapy ==

== ENCOUNTER 2022-09-26 00:30 | Inpatient (IN) | payer BC ==
[2022-09-23 14:53] VITALS: BP 129/77
[~2022-09-26] VITALS: Ht 157.5 cm; Wt 109.8 kg
[2022-09-26] VITALS (8 sets, daily range): BP systolic 141–166; BP diastolic 79–90
[2022-09-27] VITALS: BP 116/65
[2022-09-27 07:22] LABS: BASO % 0.2 % (0.0-1.0); HEMATOCRIT 39.6 % (37.0-47.0); LYMPH % 11.4 % (27.0-41.0); MEAN CORPUSCULAR HGB CONC 32.3 g/dl (33.0-37.0); MEAN PLATELET VOLUME 11.9 fl (9.6-12.3); MONO % 5.8 % (3.0-9.0); NEUT # 14.5 10*3/uL (2.3-7.9); NEUT % 81.6 % (47.0-73.0); PLATELET COUNT AUTOMATED 254 10*3/uL (130-400); RED BLOOD COUNT 4.26 10*6/uL (4.10-5.10); RED CELL DISTRI WIDTH 12.5 % (0-14.5); WHITE BLOOD COUNT 17.7 10*3/uL (4.8-10.8)
[2022-09-27 07:40] LABS: ALKALINE PHOSPHATASE 102 U/L (46-116); BUN 10 mg/dl (9-23); CHLORIDE 105 mmol/L (98-107); CREATININE 0.61 mg/dL (0.55-1.02); POTASSIUM 3.5 mmol/L (3.4-5.1); SGPT/ALT 33 U/L (10-49); SODIUM 140 mmol/L (136-145); TOTAL PROTEIN 7.2 gm/dL (6.0-8.0)
[2022-09-27 08:00] VITALS: BP 156/76
[2022-09-27 12:00] VITALS: BP 149/77
[2022-09-27 16:00] VITALS: BP 155/87; BP 90/48
[2022-09-27 20:00] VITALS: BP 136/89
[2022-09-28] VITALS: BP 157/78
[2022-09-28 06:34] LABS: BASO # 0.1 10*3/uL (0.0-0.1); BASO % 0.3 % (0.0-1.0); EOS % 0.3 % (1.0-4.0); HEMATOCRIT 37.2 % (37.0-47.0); LYMPH # 3.2 10*3/uL (1.3-4.4); LYMPH % 21.4 % (27.0-41.0); MEAN CELL VOLUME 92.1 fl (81.0-99.0); MEAN CORPUSCULAR HGB CONC 32.5 g/dl (33.0-37.0); MEAN PLATELET VOLUME 11.5 fl (9.6-12.3); MONO % 6.9 % (3.0-9.0); NEUT # 10.5 10*3/uL (2.3-7.9); NEUT % 70.4 % (47.0-73.0); PLATELET COUNT AUTOMATED 191 10*3/uL (130-400); RED BLOOD COUNT 4.04 10*6/uL (4.10-5.10); RED CELL DISTRI WIDTH 12.5 % (0-14.5); WHITE BLOOD COUNT 14.9 10*3/uL (4.8-10.8)
[2022-09-28 08:00] VITALS: BP 146/94
[2022-09-28 12:00] VITALS: BP 144/90
[2022-09-28 16:00] VITALS: BP 135/90
[2022-09-28 20:00] VITALS: BP 151/95
[2022-09-29] VITALS: BP 145/90
[2022-09-29 07:26] LABS: BASO # 0.1 10*3/uL (0.0-0.1); BASO % 0.5 % (0.0-1.0); EOS # 0.2 10*3/uL (0.0-0.4); EOS % 0.8 % (1.0-4.0); HEMATOCRIT 46.8 % (37.0-47.0); LYMPH # 3.4 10*3/uL (1.3-4.4); MEAN CELL VOLUME 91.1 fl (81.0-99.0); MEAN CORPUSCULAR HGB 29.4 pg (27.0-31.0); MEAN CORPUSCULAR HGB CONC 32.3 g/dl (33.0-37.0); MEAN PLATELET VOLUME 11.7 fl (9.6-12.3); MONO # 1.2 10*3/uL (0.1-1.0); MONO % 6.1 % (3.0-9.0); NEUT # 14.9 10*3/uL (2.3-7.9); NEUT % 74.6 % (47.0-73.0); RED BLOOD COUNT 5.14 10*6/uL (4.10-5.10); RED CELL DISTRI WIDTH 12.6 % (0-14.5)
[2022-09-29 07:27] LABS: PLATELET COUNT AUTOMATED 376 10*3/uL (130-400)
[2022-09-29 07:41] LABS: BUN 9 mg/dl (9-23); CHLORIDE 101 mmol/L (98-107); CREATININE 0.65 mg/dL (0.55-1.02); POTASSIUM 3.8 mmol/L (3.4-5.1); SODIUM 138 mmol/L (136-145)
[2022-09-29 08:00] VITALS: BP 135/93
[2022-09-29 12:00] VITALS: BP 141/90
[2022-09-29 16:00] VITALS: BP 132/92
[2022-09-29 20:00] VITALS: BP 118/75
[2022-09-30] VITALS: BP 135/82
[2022-09-30 07:09] LABS: BASO # 0.1 10*3/uL (0.0-0.1); BASO % 0.4 % (0.0-1.0); EOS # 0.1 10*3/uL (0.0-0.4); EOS % 0.5 % (1.0-4.0); HEMATOCRIT 42.5 % (37.0-47.0); LYMPH # 3.6 10*3/uL (1.3-4.4); LYMPH % 20.1 % (27.0-41.0); MEAN CELL VOLUME 91.2 fl (81.0-99.0); MEAN CORPUSCULAR HGB 30.3 pg (27.0-31.0); MEAN CORPUSCULAR HGB CONC 33.2 g/dl (33.0-37.0); MEAN PLATELET VOLUME 11.9 fl (9.6-12.3); MONO % 5.7 % (3.0-9.0); NEUT # 13.1 10*3/uL (2.3-7.9); NEUT % 72.6 % (47.0-73.0); PLATELET COUNT AUTOMATED 328 10*3/uL (130-400); RED BLOOD COUNT 4.66 10*6/uL (4.10-5.10); RED CELL DISTRI WIDTH 12.8 % (0-14.5)
[2022-09-30 07:11] LABS: ALKALINE PHOSPHATASE 103 U/L (46-116); BUN 10 mg/dl (9-23); CHLORIDE 98 mmol/L (98-107); CREATININE 0.65 mg/dL (0.55-1.02); POTASSIUM 3.9 mmol/L (3.4-5.1); SGPT/ALT 37 U/L (10-49); SODIUM 135 mmol/L (136-145); TOTAL PROTEIN 7.3 gm/dL (6.0-8.0)
[2022-09-30 08:00] VITALS: BP 144/90
[2022-09-30 12:00] VITALS: BP 134/88
[2022-09-30 16:00] VITALS: BP 139/91
[2022-09-30 20:00] VITALS: BP 137/90
[2022-10-01] VITALS: BP 140/95
[2022-10-01 07:24] LABS: BASO # 0.1 10*3/uL (0.0-0.1); BASO % 0.5 % (0.0-1.0); EOS # 0.2 10*3/uL (0.0-0.4); EOS % 0.9 % (1.0-4.0); HEMATOCRIT 42.9 % (37.0-47.0); LYMPH # 3.6 10*3/uL (1.3-4.4); MEAN CELL VOLUME 88.8 fl (81.0-99.0); MEAN CORPUSCULAR HGB 29.4 pg (27.0-31.0); MEAN CORPUSCULAR HGB CONC 33.1 g/dl (33.0-37.0); MEAN PLATELET VOLUME 11.2 fl (9.6-12.3); NEUT # 12.1 10*3/uL (2.3-7.9); PLATELET COUNT AUTOMATED 355 10*3/uL (130-400); RED BLOOD COUNT 4.83 10*6/uL (4.10-5.10); RED CELL DISTRI WIDTH 12.8 % (0-14.5)
[2022-10-01 07:43] LABS: BUN 10 mg/dl (9-23); CHLORIDE 99 mmol/L (98-107); CREATININE 0.65 mg/dL (0.55-1.02); SODIUM 136 mmol/L (136-145)
[2022-10-01 08:00] VITALS: BP 152/98
[2022-10-01 12:00] VITALS: BP 137/80
[2022-10-01 16:00] VITALS: BP 147/80
[2022-10-01 20:00] VITALS: BP 161/91
[2022-10-02] VITALS: BP 143/87
[2022-10-02 07:16] LABS: BASO # 0.1 10*3/uL (0.0-0.1); BASO % 0.5 % (0.0-1.0); EOS # 0.2 10*3/uL (0.0-0.4); EOS % 1.3 % (1.0-4.0); HEMATOCRIT 40.6 % (37.0-47.0); LYMPH # 4.3 10*3/uL (1.3-4.4); LYMPH % 23.6 % (27.0-41.0); MEAN CELL VOLUME 89.8 fl (81.0-99.0); MEAN CORPUSCULAR HGB 30.1 pg (27.0-31.0); MEAN CORPUSCULAR HGB CONC 33.5 g/dl (33.0-37.0); MEAN PLATELET VOLUME 11.3 fl (9.6-12.3); MONO # 1.2 10*3/uL (0.1-1.0); MONO % 6.8 % (3.0-9.0); NEUT # 12.1 10*3/uL (2.3-7.9); NEUT % 67.1 % (47.0-73.0); PLATELET COUNT AUTOMATED 308 10*3/uL (130-400); RED BLOOD COUNT 4.52 10*6/uL (4.10-5.10); RED CELL DISTRI WIDTH 12.8 % (0-14.5)
[2022-10-02 07:35] VITALS: BP 140/90
[2022-10-02 07:49] LABS: ALKALINE PHOSPHATASE 91 U/L (46-116); BUN 11 mg/dl (9-23); CHLORIDE 98 mmol/L (98-107); CREATININE 0.61 mg/dL (0.55-1.02); POTASSIUM 3.9 mmol/L (3.4-5.1); SGPT/ALT 45 U/L (10-49); SODIUM 133 mmol/L (136-145)
[2022-10-02 11:52] VITALS: BP 132/86
[2022-10-02 16:00] VITALS: BP 144/77
[2022-10-02 20:00] VITALS: BP 143/83
[2022-10-03] VITALS: BP 126/72
[2022-10-03 07:44] LABS: BASO # 0.1 10*3/uL (0.0-0.1); BASO % 0.6 % (0.0-1.0); EOS # 0.4 10*3/uL (0.0-0.4); HEMATOCRIT 39.9 % (37.0-47.0); LYMPH # 4.3 10*3/uL (1.3-4.4); LYMPH % 25.3 % (27.0-41.0); MEAN CELL VOLUME 89.1 fl (81.0-99.0); MEAN CORPUSCULAR HGB 29.7 pg (27.0-31.0); MEAN CORPUSCULAR HGB CONC 33.3 g/dl (33.0-37.0); MEAN PLATELET VOLUME 11.7 fl (9.6-12.3); MONO # 1.1 10*3/uL (0.1-1.0); MONO % 6.5 % (3.0-9.0); NEUT # 11.1 10*3/uL (2.3-7.9); PLATELET COUNT AUTOMATED 300 10*3/uL (130-400); RED BLOOD COUNT 4.48 10*6/uL (4.10-5.10); RED CELL DISTRI WIDTH 12.9 % (0-14.5); WHITE BLOOD COUNT 17.2 10*3/uL (4.8-10.8)
[2022-10-03 08:00] VITALS: BP 144/79
[2022-10-03 08:02] LABS: ALKALINE PHOSPHATASE 95 U/L (46-116); BUN 10 mg/dl (9-23); CHLORIDE 98 mmol/L (98-107); CREATININE 0.61 mg/dL (0.55-1.02); POTASSIUM 3.6 mmol/L (3.4-5.1); SGPT/ALT 52 U/L (10-49); SODIUM 133 mmol/L (136-145); TOTAL PROTEIN 6.7 gm/dL (6.0-8.0)
[2022-10-03] MEDS ORDERED: CIPRO500 MG PO (10:07)
[2022-10-03] MEDS ORDERED: METRONIDAZOLE500 M1 PO (10:07)
[2022-10-03] MEDS ORDERED: PERCOCET 5-3251 EACH PO (10:07)
[2022-10-03] MEDS ORDERED: ONDANSETRON HYDR4 M1 PO (10:07)
[2022-10-03 12:00] VITALS: BP 121/75
== END 2022-10-03 12:00 | disposition home health service (06) | DRG 330 ==
LOC: SDC 00:30 → 5E 16:12
PROVIDERS: Internal Medicine; Student in an Organized Health Care Education/Training Program; ADMIT Student in an Organized Health Care Education/Training Program; ATTEND Student in an Organized Health Care Education/Training Program
PROC: 0D1 Gastrointestinal System, Bypass (ICD-10-PCS; principal; 2022-09-26)
PROC: 0D1B4Z4 Bypass Ileum to Cutaneous, Percutaneous Endoscopic Approach (ICD-10-PCS; 2022-09-26)
PROC: 3E0T3BZ Introduction of Anesthetic Agent into Peripheral Nerves and Plexi, Percutaneous Approach (ICD-10-PCS; 2022-09-26)
PROC: 3E0T33Z Introduction of Anti-inflammatory into Peripheral Nerves and Plexi, Percutaneous Approach (ICD-10-PCS; 2022-09-26)
PROC: 0DBG4ZZ Excision of Left Large Intestine, Percutaneous Endoscopic Approach (ICD-10-PCS; 2022-09-26)
DX: K63.89 Other specified diseases of intestine (principal); E44.0 Moderate protein-calorie malnutrition; R65.10 Systemic inflammatory response syndrome (SIRS) of non-infectious origin without acute organ dysfunction; Z68.42 Body mass index [BMI] 45.0-49.9, adult; E66.01 Morbid (severe) obesity due to excess calories; J45.909 Unspecified asthma, uncomplicated; I10 Essential (primary) hypertension; E11.9 Type 2 diabetes mellitus without complications; E55.9 Vitamin D deficiency, unspecified; E78.5 Hyperlipidemia, unspecified; Z82.5 Family history of asthma and other chronic lower respiratory diseases

== ENCOUNTER 2022-10-06 16:04 | Emergency (ER) | payer BC ==
[~2022-10-06] VITALS: Ht 157.4 cm; Wt 104.3 kg
[~2022-10-06 16:04] MED LIST changes: +CIPRO500 MG PO; +METRONIDAZOLE500 M1 PO; +ONDANSETRON HYDR4 M1 PO; +PERCOCET 5-3251 EACH PO
== END 2022-10-06 17:47 | disposition home health service (06) ==
LOC: ED 16:04
DX: K94.09 Other complications of colostomy (principal); Z79.899 Other long term (current) drug therapy; Z90.89 Acquired absence of other organs; Z98.890 Other specified postprocedural states

== ENCOUNTER 2022-10-15 22:49 | Emergency (ER) | payer BC ==
[~2022-10-15] VITALS: Ht 157.4 cm; Wt 109.8 kg
[2022-10-16 00:24] LABS: HEMATOCRIT 46.1 % (37.0-47.0); MEAN CELL VOLUME 89.5 fl (81.0-99.0); MEAN CORPUSCULAR HGB 29.1 pg (27.0-31.0); MEAN CORPUSCULAR HGB CONC 32.5 g/dl (33.0-37.0); MEAN PLATELET VOLUME 11.3 fl (9.6-12.3); PLATELET COUNT AUTOMATED 466 10*3/uL (130-400); RED BLOOD COUNT 5.15 10*6/uL (4.10-5.10); RED CELL DISTRI WIDTH 13.1 % (0-14.5); WHITE BLOOD COUNT 14.9 10*3/uL (4.8-10.8)
[2022-10-16 00:27] LABS: MANUAL DIFF REFLEX YES
[2022-10-16 00:39] LABS: CREATININE 9.59 mg/dL (0.55-1.02); POTASSIUM 5.3 mmol/L (3.4-5.1); TOTAL PROTEIN 8.2 gm/dL (6.0-8.0)
[2022-10-16 00:48] LABS: ATYPICAL LYMPHS 1 % (0-0); PLATELET SUFFICIENCY HIGH (NORMAL); TOTAL CELLS COUNTED 100 #CELLS
== END 2022-10-16 08:55 | disposition short-term general hospital (02) ==
LOC: ED 22:49
PROVIDERS: Internal Medicine
DX: K56.609 Unspecified intestinal obstruction, unspecified as to partial versus complete obstruction (principal); N17.9 Acute kidney failure, unspecified; E87.8 Other disorders of electrolyte and fluid balance, not elsewhere classified; E83.52 Hypercalcemia; D72.829 Elevated white blood cell count, unspecified; Z98.51 Tubal ligation status; Z98.890 Other specified postprocedural states

== ENCOUNTER → 2022-10-23 | Outpatient (CLI) | payer BC | END | disposition home or self-care (01) | LOC: RESCLI 09:13 | PROVIDERS: ATTEND Internal Medicine | DX: C18.9 Malignant neoplasm of colon, unspecified (principal); I10 Essential (primary) hypertension; E78.5 Hyperlipidemia, unspecified; E11.9 Type 2 diabetes mellitus without complications; E78.2 Mixed hyperlipidemia; N17.9 Acute kidney failure, unspecified; J45.909 Unspecified asthma, uncomplicated; R56.9 Unspecified convulsions; K74.60 Unspecified cirrhosis of liver; Z93.2 Ileostomy status; Z12.4 Encounter for screening for malignant neoplasm of cervix; Z12.31 Encounter for screening mammogram for malignant neoplasm of breast; Z90.49 Acquired absence of other specified parts of digestive tract; Z98.890 Other specified postprocedural states; Z88.9 Allergy status to unspecified drugs, medicaments and biological substances; Z79.84 Long term (current) use of oral hypoglycemic drugs; Z79.899 Other long term (current) drug therapy ==

== ENCOUNTER → 2022-11-06 | Outpatient (CLI) | payer BC ==
[2022-11-06 09:52] LABS: BUN 21 mg/dl (9-23); CHLORIDE 107 mmol/L (98-107); POTASSIUM 4.9 mmol/L (3.4-5.1)
== END | disposition home or self-care (01) ==
LOC: LAB 08:29
PROVIDERS: ATTEND Student in an Organized Health Care Education/Training Program
DX: E87.5 Hyperkalemia (principal); N17.9 Acute kidney failure, unspecified

== ENCOUNTER → 2022-11-11 | Day surgery (SDC) | payer BC ==
[2022-11-06 09:02] VITALS: BP 115/85
[~2022-11-11] VITALS: Ht 157.4 cm; Wt 90.3 kg
[~2022-11-11] MED LIST changes: +COLACE100 MG PO; +HYDROCODONE-AC1 EAC1 PO; +MAGNESIUM OXID250 M2 PO; +PANTOPRAZOLE SO40 MG PO
[2022-11-11 10:15] VITALS: BP 102/41
[2022-11-11 11:55] VITALS: BP 107/56
[2022-11-11 12:10] VITALS: BP 121/51
[2022-11-11 12:24] VITALS: BP 107/70
== END | disposition home or self-care (01) ==
LOC: SDC 11-07 12:30
PROVIDERS: ATTEND Surgery
DX: C20 Malignant neoplasm of rectum (principal); I87.2 Venous insufficiency (chronic) (peripheral); I10 Essential (primary) hypertension; E11.9 Type 2 diabetes mellitus without complications; J45.909 Unspecified asthma, uncomplicated; E78.00 Pure hypercholesterolemia, unspecified; G40.909 Epilepsy, unspecified, not intractable, without status epilepticus; Z79.899 Other long term (current) drug therapy; Z98.890 Other specified postprocedural states

== ENCOUNTER 2023-02-05 17:18 | Emergency (ER) | payer BC ==
[~2023-02-05] VITALS: Wt 105.2 kg
[2023-02-05] MEDS ORDERED: VIBRAMYCIN100 MG PO (20:32)
== END 2023-02-05 20:38 | disposition home or self-care (01) ==
LOC: ED 17:18
DX: L02.31 Cutaneous abscess of buttock (principal); J45.909 Unspecified asthma, uncomplicated; I10 Essential (primary) hypertension; E11.9 Type 2 diabetes mellitus without complications; Z90.89 Acquired absence of other organs; Z98.890 Other specified postprocedural states

== ENCOUNTER 2023-07-03 17:06 | Emergency (ER) | payer BC ==
[2023-07-03] MEDS ORDERED: PENICILLIN VK500 MG PO (17:26)
== END 2023-07-03 17:35 | disposition home or self-care (01) ==
LOC: ED 17:06
DX: K08.89 Other specified disorders of teeth and supporting structures (principal); J45.909 Unspecified asthma, uncomplicated; I10 Essential (primary) hypertension; J44.9 Chronic obstructive pulmonary disease, unspecified; Z90.89 Acquired absence of other organs; Z98.890 Other specified postprocedural states

== ENCOUNTER → 2023-10-09 | Outpatient (CLI) | payer BC ==
[~2023-10-09] MED LIST changes: +PENICILLIN VK500 MG PO
== END | disposition home or self-care (01) ==
LOC: RESCLI 01:31
PROVIDERS: ATTEND Internal Medicine
DX: E78.1 Pure hyperglyceridemia (principal); J45.909 Unspecified asthma, uncomplicated; E11.9 Type 2 diabetes mellitus without complications; I10 Essential (primary) hypertension; F10.90 Alcohol use, unspecified, uncomplicated; F17.210 Nicotine dependence, cigarettes, uncomplicated; R56.9 Unspecified convulsions; E55.9 Vitamin D deficiency, unspecified; E78.00 Pure hypercholesterolemia, unspecified; Z79.899 Other long term (current) drug therapy; Z88.8 Allergy status to other drugs, medicaments and biological substances

== ENCOUNTER 2023-11-14 15:16 | Emergency (ER) | payer OTHER, BC ==
[~2023-11-14] VITALS: Ht 157.4 cm; Wt 107.5 kg
== END 2023-11-14 16:07 | disposition home or self-care (01) ==
LOC: ED 15:16
DX: Z04.3 Encounter for examination and observation following other accident (principal); J45.909 Unspecified asthma, uncomplicated; I10 Essential (primary) hypertension; E11.9 Type 2 diabetes mellitus without complications; Z90.89 Acquired absence of other organs; Z98.890 Other specified postprocedural states; V89.2XXA Person injured in unspecified motor-vehicle accident, traffic, initial encounter; Y93.89 Activity, other specified; Y92.481 Parking lot as the place of occurrence of the external cause; Y99.0 Civilian activity done for income or pay

== ENCOUNTER 2024-02-13 17:56 | Emergency (ER) | payer BC ==
[~2024-02-13] VITALS: Ht 157.4 cm; Wt 103.0 kg
[2024-02-13] MEDS ORDERED: VIBRAMYCIN100 MG PO (19:03)
[2024-02-13] MEDS ORDERED: Doxycycline Hyclate 100 MG CAP PO ONE (19:05)
[2024-02-13] MEDS ORDERED: LEVETIRACETAM1000 M1 PO (19:09)
[2024-02-13] MEDS ORDERED: FENOFIBRATE48 M1 PO (19:09)
== END 2024-02-13 19:25 | disposition home or self-care (01) ==
LOC: ED 17:56
DX: L73.8 Other specified follicular disorders (principal); J45.909 Unspecified asthma, uncomplicated; I10 Essential (primary) hypertension; E11.9 Type 2 diabetes mellitus without complications; Z90.89 Acquired absence of other organs; Z98.890 Other specified postprocedural states

== ENCOUNTER → 2024-06-04 | Outpatient (CLI) | payer BC ==
[~2024-06-04] MED LIST changes: +BREO ELLIPTA 21 EACH PO; +DULOXETINE HCL20 MG PO; +FENOFIBRATE48 M1 PO; +LEVETIRACETAM1000 M1 PO
== END | disposition home or self-care (01) ==
LOC: RESCLI 00:52
PROVIDERS: ATTEND Internal Medicine
DX: J45.909 Unspecified asthma, uncomplicated (principal); I10 Essential (primary) hypertension; E78.00 Pure hypercholesterolemia, unspecified; E11.9 Type 2 diabetes mellitus without complications; G40.909 Epilepsy, unspecified, not intractable, without status epilepticus; E55.9 Vitamin D deficiency, unspecified; C18.9 Malignant neoplasm of colon, unspecified; Z79.899 Other long term (current) drug therapy; Z88.8 Allergy status to other drugs, medicaments and biological substances; Z98.890 Other specified postprocedural states

== ENCOUNTER 2024-09-07 19:26 | Emergency (ER) | payer BC ==
[~2024-09-07] VITALS: Ht 157.4 cm; Wt 109.3 kg
[2024-09-07 21:05] LABS: BASO # 0.1 10*3/uL (0.0-0.1); BASO % 0.8 % (0.0-1.0); EOS # 0.3 10*3/uL (0.0-0.4); EOS % 2.8 % (1.0-4.0); HEMATOCRIT 41.4 % (37.0-47.0); MEAN CELL VOLUME 91.8 fl (81.0-99.0); MEAN CORPUSCULAR HGB 29.5 pg (27.0-31.0); MEAN CORPUSCULAR HGB CONC 32.1 g/dl (33.0-37.0); MEAN PLATELET VOLUME 11.8 fl (9.6-12.3); MONO # 0.7 10*3/uL (0.1-1.0); MONO % 7.4 % (3.0-9.0); NEUT # 7.3 10*3/uL (2.3-7.9); NEUT % 75.5 % (47.0-73.0); PLATELET COUNT AUTOMATED 146 10*3/uL (130-400); RED BLOOD COUNT 4.51 10*6/uL (4.10-5.10); RED CELL DISTRI WIDTH 13.2 % (0-14.5); WHITE BLOOD COUNT 9.6 10*3/uL (4.8-10.8)
[2024-09-07 21:27] LABS: ALKALINE PHOSPHATASE 122 U/L (46-116); BUN 9 mg/dl (9-23); CHLORIDE 103 mmol/L (98-107); LIPASE 46 U/L (12-53); POTASSIUM 3.8 mmol/L (3.4-5.1); SGPT/ALT 28 U/L (5-49); TOTAL PROTEIN 8.1 gm/dL (6.0-8.0)
[2024-09-07 21:27] LABS: BILIRUBIN Negative (Negative); BLOOD Negative (Negative); CLARITY Clear (Clear); COLOR Yellow (Yellow); GLUCOSE 3+ (Negative); KETONE Negative (Negative); LEUKO ESTERASE Trace (Negative); NITRITE Negative (Negative); PH 5.5 (4.5-8.0); UROBILINOGEN 0.2 E.U./dl (0.0-1.0)
[2024-09-07 21:32] LABS: BACTERIA 1+; RBC 0-2 rbc/hpf (0-2)
[2024-09-07] MEDS ORDERED: Ketorolac Tromethamine 60 MG/2 ML VIAL IM ONE (21:45)
[2024-09-07] MEDS ORDERED: CIPRO500 MG PO (23:23)
[2024-09-07] MEDS ORDERED: Ciprofloxacin Hydrochloride 500 MG TAB PO ONE (23:25)
== END 2024-09-07 23:42 | disposition home or self-care (01) ==
LOC: ED 19:26
PROVIDERS: Nurse Practitioner Family
DX: N39.0 Urinary tract infection, site not specified (principal); E11.65 Type 2 diabetes mellitus with hyperglycemia; J45.909 Unspecified asthma, uncomplicated; E78.00 Pure hypercholesterolemia, unspecified; E78.5 Hyperlipidemia, unspecified; I10 Essential (primary) hypertension; Z90.89 Acquired absence of other organs; Z98.890 Other specified postprocedural states

== ENCOUNTER 2025-02-11 13:27 | Emergency (ER) | payer BC ==
[~2025-02-11] VITALS: Ht 157.4 cm; Wt 103.0 kg
[~2025-02-11 13:27] MED LIST changes: +METFORMIN HYDR500 MG PO; +TRELEGY ELLIPT1 EAC1 INH; +VENT7GM INH
[2025-02-11 14:45] LABS: BASO # 0.1 10*3/uL (0.0-0.1); BASO % 0.6 % (0.0-1.0); EOS # 0.3 10*3/uL (0.0-0.4); EOS % 4.1 % (1.0-4.0); HEMATOCRIT 40.5 % (37.0-47.0); MEAN CELL VOLUME 92.3 fl (81.0-99.0); MEAN CORPUSCULAR HGB 28.9 pg (27.0-31.0); MEAN CORPUSCULAR HGB CONC 31.4 g/dl (33.0-37.0); MEAN PLATELET VOLUME 11.3 fl (9.6-12.3); MONO # 0.5 10*3/uL (0.1-1.0); MONO % 6.9 % (3.0-9.0); NEUT # 5.9 10*3/uL (2.3-7.9); NEUT % 74.4 % (47.0-73.0); PLATELET COUNT AUTOMATED 148 10*3/uL (130-400); RED BLOOD COUNT 4.39 10*6/uL (4.10-5.10); RED CELL DISTRI WIDTH 13.2 % (0-14.5); WHITE BLOOD COUNT 7.9 10*3/uL (4.8-10.8)
[2025-02-11 15:05] LABS: ALKALINE PHOSPHATASE 103 U/L (46-116); BUN 12 mg/dl (9-23); CHLORIDE 105 mmol/L (98-107); LIPASE 35 U/L (12-53); POTASSIUM 3.5 mmol/L (3.4-5.1); SGPT/ALT 22 U/L (5-49); TOTAL PROTEIN 7.4 gm/dL (6.0-8.0)
[2025-02-11] MEDS ORDERED: HYDROmorphONE Hydrochloride 0.5 MG/0.5 ML SYRINGE IV ONE (16:20)
[2025-02-11] MEDS ORDERED: Ondansetron Hydrochloride 4 MG/2 ML VIAL IV ONE (16:20)
[2025-02-11] MEDS ORDERED: MG-AL HYDROXIDE/SIMETICONE 30 ML UDC PO STA (17:17)
[2025-02-11] MEDS ORDERED: Lidocaine Hydrochloride 15 ML UDC PO STA (17:17)
[2025-02-11] MEDS ORDERED: Dicyclomine Hydrochloride 20 MG/10 ML OSYR PO STA (17:17)
[2025-02-11] MEDS ORDERED: PEPCID40 MG PO (18:43)
== END 2025-02-11 18:51 | disposition home or self-care (01) ==
LOC: ED 13:27
PROVIDERS: Nurse Practitioner Family
DX: R10.13 Epigastric pain (principal); R14.2 Eructation; J45.909 Unspecified asthma, uncomplicated; E11.9 Type 2 diabetes mellitus without complications; I10 Essential (primary) hypertension; Z79.899 Other long term (current) drug therapy; Z79.84 Long term (current) use of oral hypoglycemic drugs; E78.5 Hyperlipidemia, unspecified; Z85.038 Personal history of other malignant neoplasm of large intestine; Z90.89 Acquired absence of other organs; Z93.3 Colostomy status

== ENCOUNTER → 2025-03-31 | Outpatient (CLI) | payer BC ==
[~2025-03-31] MED LIST changes: +PEPCID40 MG PO
[2025-03-31 08:33] LABS: BASO # 0.1 10*3/uL (0.0-0.1); BASO % 0.9 % (0.0-1.0); EOS # 0.7 10*3/uL (0.0-0.4); EOS % 6.9 % (1.0-4.0); HEMATOCRIT 39.9 % (37.0-47.0); MEAN CELL VOLUME 93.2 fl (81.0-99.0); MEAN CORPUSCULAR HGB CONC 31.1 g/dl (33.0-37.0); MONO # 0.8 10*3/uL (0.1-1.0); MONO % 7.4 % (3.0-9.0); NEUT # 7.1 10*3/uL (2.3-7.9); NEUT % 68.2 % (47.0-73.0); PLATELET COUNT AUTOMATED 164 10*3/uL (130-400); RED BLOOD COUNT 4.28 10*6/uL (4.10-5.10); RED CELL DISTRI WIDTH 13.7 % (0-14.5); WHITE BLOOD COUNT 10.4 10*3/uL (4.8-10.8)
[2025-03-31 09:03] LABS: ALKALINE PHOSPHATASE 109 U/L (46-116); BUN 14 mg/dl (9-23); CHLORIDE 101 mmol/L (98-107); POTASSIUM 3.6 mmol/L (3.4-5.1); SGPT/ALT 26 U/L (5-49); TOTAL PROTEIN 7.6 gm/dL (6.0-8.0)
== END | disposition home or self-care (01) ==
LOC: LAB 07:30
PROVIDERS: ATTEND Nurse Practitioner Family
DX: R56.9 Unspecified convulsions (principal)

== ENCOUNTER 2025-08-12 16:23 | Emergency (ER) | payer BC ==
[2025-08-12] MEDS ORDERED: Albuterol Sulf/Ipratropium 3 ML VIAL NEB ONE (16:35)
[2025-08-12 16:53] LABS: BASO # 0.1 10*3/uL (0.0-0.1); BASO % 0.7 % (0.0-1.0); EOS # 0.6 10*3/uL (0.0-0.4); EOS % 6.3 % (1.0-4.0); MEAN CELL VOLUME 92.1 fl (81.0-99.0); MEAN CORPUSCULAR HGB 29.5 pg (27.0-31.0); MEAN PLATELET VOLUME 11.3 fl (9.6-12.3); MONO # 0.6 10*3/uL (0.1-1.0); MONO % 6.3 % (3.0-9.0); NEUT # 6.0 10*3/uL (2.3-7.9); NEUT % 68.4 % (47.0-73.0); NUCLEATED RED BLOOD CELL 0.0 % (0.0-0.0); NUCLEATED RED BLOOD CELL 0.0 10*3/uL (0.0-0.0); PLATELET COUNT AUTOMATED 144 10*3/uL (130-400); RED CELL DISTRI WIDTH 13.4 % (0-14.5)
[2025-08-12 17:10] LABS: BUN 24.0 mg/dl (9-23)
[2025-08-12] MEDS ORDERED: SODIUM CHLORIDE 0.9% 1,000 ML IV ONE (17:20)
[2025-08-12] MEDS ORDERED: Ondansetron Hydrochloride 4 MG TAB SL ONE (17:50)
[2025-08-12] MEDS ORDERED: MAGNESIUM SULFATE 50 ML IV ONE (18:10)
[2025-08-12 18:36] LABS: BILIRUBIN Negative (Negative); BLOOD Negative (Negative); CLARITY Clear (Clear); COLOR Yellow (Yellow); KETONE Negative (Negative); LEUKO ESTERASE 2+ (Negative); NITRITE Negative (Negative); PH 5.5 (4.5-8.0); SPECIFIC GRAVITY 1.020 (1.001-1.030); UROBILINOGEN 0.2 E.U./dl (0.0-1.0)
[2025-08-12 18:45] LABS: BACTERIA 1+; EPITHELIAL CELLS 21-30; RBC 0-2 rbc/hpf (0-2); WBC 31-40 wbc/hpf (0-5)
[2025-08-12] MEDS ORDERED: CEPHALEXIN500 M1 PO (19:02)
[2025-08-12] MEDS ORDERED: AVPAK AZITHROM250 M1 PO (19:02)
[2025-08-12] MEDS ORDERED: PREDNISONE20 M1 PO (19:02)
[2025-08-12] MEDS ORDERED: AZITHROMYCIN 250 MG TAB PO ONE (19:05)
== END 2025-08-12 20:05 | disposition home or self-care (01) ==
LOC: ED 16:23
PROVIDERS: Nurse Practitioner Family
DX: J45.901 Unspecified asthma with (acute) exacerbation (principal); N39.0 Urinary tract infection, site not specified; I10 Essential (primary) hypertension; E78.5 Hyperlipidemia, unspecified; J45.909 Unspecified asthma, uncomplicated; E11.9 Type 2 diabetes mellitus without complications; Z90.89 Acquired absence of other organs; Z87.440 Personal history of urinary (tract) infections; E66.01 Morbid (severe) obesity due to excess calories; Z68.42 Body mass index [BMI] 45.0-49.9, adult

== ENCOUNTER 2025-10-08 18:14 | Emergency (ER) | payer BC ==
[~2025-10-08] VITALS: Ht 157.4 cm; Wt 101.6 kg
[~2025-10-08 18:14] MED LIST changes: +CEPHALEXIN500 M1 PO
== END 2025-10-08 20:05 | disposition home or self-care (01) ==
LOC: ED 18:14
DX: S63.502A Unspecified sprain of left wrist, initial encounter (principal); J45.909 Unspecified asthma, uncomplicated; I10 Essential (primary) hypertension; E11.9 Type 2 diabetes mellitus without complications; Z90.89 Acquired absence of other organs; W01.0XXA Fall on same level from slipping, tripping and stumbling without subsequent striking against object, initial encounter; Y93.89 Activity, other specified; Y92.89 Other specified places as the place of occurrence of the external cause; Y99.8 Other external cause status